=== PATIENT | male | born 1975 | race Two or more races ===

== ENCOUNTER 2020-09-24 15:18 | Outpatient (REF) | payer MEDICARE, MEDICAID, SELFPAY | END 2020-09-24 15:19 | disposition home or self-care (01) | LOC: HO.LNP 15:18 | PROVIDERS: Visit Provider Internal Medicine | DX: Z20.828 Contact with and (suspected) exposure to other viral communicable diseases (principal) | CPT/HCPCS: U0003 ==

== ENCOUNTER 2021-02-12 16:51 | Outpatient (REF) | payer MEDICARE, MEDICAID, SELFPAY ==
--- NOTE | ~2021-02-12 | XR_ITS ---
EXAMINATION: XR CERVICAL SPINE CLINICAL INFORMATION: Neck pain. COMPARISON: None TECHNIQUE: 6 views of the cervical spine, inclusive of flexion and extension views, were obtained. FINDINGS: There is normal cervical lordosis. The vertebral heights and alignment is normal. There is no visible acute fracture, dislocation or subluxation. There is ventral osteophyte at C4-C5 disc level. The neural foramina are patent bilaterally on oblique views. No visible acute fracture, dislocation or lytic process seen. The prevertebral soft tissues are normal. XR/XR cervical spine 5V IMPRESSION: Mild ventral spondylosis C4-C5 disc level. No visible acute fracture, dislocation or subluxation seen.
[2021-02-12 17:18] LABS: MANUAL DIFF FLAG NO
[2021-02-12 17:24] LABS: Basophils Absolute Auto 0.1 X10*3/uL (0.0-0.2); Basophils Percent Auto 0.5 % (0-2); Eosinophils Absolute Auto 0.2 X10*3/uL (0.0-0.4); Eosinophils Percent Auto 1.6 % (0-4); Hematocrit 41.7 % (42-52); Hemoglobin 13.9 g/dl (14.0-18.0); Imm Gran Abs Auto 0.04 X10*3/uL (0.00-0.03); Imm Gran Pct Auto 0.4 % (0.0-0.4); Lymphocytes Absolute Auto 2.6 X10*3/uL (1.2-4.9); Lymphocytes Percent Auto 25.9 % (20-40); Mean Corpuscular HGB Conc 33.3 g/dl (31.0-36.0); Mean Corpuscular Hemoglobin 28.3 pg (27.0-33.0); Mean Corpuscular Volume 84.8 fL (80-98); Mean Platelet Volume 10.7 fL (9.4-12.4); Monocytes Absolute Auto 0.7 X10*3/uL (0.1-1.2); Neutrophils Absolute Auto 6.4 X10*3/uL (2.0-8.3); Neutrophils Percent Auto 64.6 % (45-73); Platelet Count 257 X10*3/uL (160-400); Red Blood Count 4.92 X10*6/uL (4.60-5.80); Red Cell Distribution Width 13.1 % (11.0-16.0); White Blood Count 9.9 X10*3/uL (4.8-10.8)
[2021-02-12 18:00] LABS: Alanine Aminotransferase 27 U/L (0-40); Albumin Level 4.3 g/dL (3.5-5.0); Alkaline Phosphatase 71 U/L (39-117); Anion Gap 12 (12-20); Aspartate Amino Transferase 21 U/L (5-37); Bilirubin Total 0.2 mg/dL (0.0-1.0); Blood Urea Nitrogen 14 mg/dL (9-16); C Reactive Protein 0.59 mg/dL (< or = 0.50); Carbon Dioxide 28 mmol/L (22-29); Chloride 103 mmol/L (96-108); Estimated Glomerular Filt Rate > 60; Glucose Random 64 mg/dL (60-115); Sodium 139 mmol/L (135-145); Total Protein 7.7 g/dL (6.5-8.0)
[2021-02-12 18:12] LABS: Free T4 (Free Thyroxine) 0.79 ng/dL (0.71-1.85); Thyroid Stimulating Hormone 1.99 uIU/mL (0.32-4.0)
== END 2021-02-12 16:52 | disposition home or self-care (01) ==
LOC: HO.LAB 16:51
PROVIDERS: PCP Internal Medicine; Visit Provider Internal Medicine
DX: M54.2 Cervicalgia (principal); E04.9 Nontoxic goiter, unspecified; M19.90 Unspecified osteoarthritis, unspecified site
CPT/HCPCS: 36415; 72050; 80053; 82550; 84439; 84443; 85025; 86140

== ENCOUNTER 2022-11-07 08:54 | Outpatient (REF) | payer MEDICARE, SELFPAY ==
[2022-11-07 09:10] LABS: MANUAL DIFF FLAG NO
[2022-11-07 10:20] LABS: Basophils Absolute Auto 0.1 X10*3/uL (0.0-0.2); Basophils Percent Auto 0.8 % (0-2); Eosinophils Absolute Auto 0.2 X10*3/uL (0.0-0.4); Eosinophils Percent Auto 1.9 % (0-4); Hematocrit 47.5 % (42.0-52.0); Hemoglobin 15.4 g/dl (14.0-18.0); Imm Gran Abs Auto 0.06 X10*3/uL (0.00-0.03); Imm Gran Pct Auto 0.5 % (0.0-0.4); Lymphocytes Percent Auto 25.4 % (20-40); Mean Corpuscular HGB Conc 32.4 g/dl (31.0-36.0); Mean Corpuscular Hemoglobin 27.9 pg (27.0-33.0); Mean Corpuscular Volume 86.1 fL (80.0-98.0); Mean Platelet Volume 11.7 fL (9.4-12.4); Monocytes Percent Auto 8.2 % (2-11); Neutrophils Absolute Auto 7.6 x10*3/uL (2.0-8.3); Neutrophils Percent Auto 63.2 % (45-73); Platelet Count 287 X10*3/uL (160-400); Red Blood Count 5.52 X10*6/uL (4.60-5.80); Red Cell Distribution Width 13.2 % (11.0-16.0)
[2022-11-07 10:30] LABS: Estimated Average Glucose 105 mg/dL; Hemoglobin A1c % 5.3 %
[2022-11-07 10:32] LABS: Appearance Urine Clear; Color Urine Yellow; Glucose Urine UA Negative (Negative); Leukocyte Esterase Urine Negative (Negative); Nitrite Urine Negative (Negative); PH 5.5 (5.0-9.0); Urine Blood Negative (Negative); Urine Ketones Negative (Negative); Urine Protein Negative (Neg-Trace)
[2022-11-07 10:54] LABS: Amphetamine Screen Urine Not Detected (Not Detect); Barbiturates, Urine Not Detected (Not Detect); Benzodiazepines Screen Urine Not Detected (Not Detect); Cocaine Screen Urine Not Detected (Not Detect); Fentanyl, urine Not Detected (Not Detect); Opiate Screen Urine Not Detected (Not Detect); Phencyclidine Screen Urine Not Detected (Not Detect)
[2022-11-07 11:15] LABS: Alanine Aminotransferase 28 U/L (0-40); Albumin Level 4.4 g/dL (3.5-5.0); Alkaline Phosphatase 85 U/L (39-117); Anion Gap 14 (12-20); Aspartate Amino Transferase 16 U/L (5-37); Bilirubin Total 0.3 mg/dL (0.0-1.0); Blood Urea Nitrogen 20 mg/dL (9-16); C Reactive Protein 0.43 mg/dL (< or = 0.50); Calcium 9.9 mg/dL (8.4-10.2); Carbon Dioxide 26 mmol/L (22-29); Chloride 103 mmol/L (96-108); Cholesterol 220 mg/dL; Estimated Glomerular Filt Rate > 60; Free T4 (Free Thyroxine) 0.92 ng/dL (0.71-1.85); Glucose Random 90 mg/dL (60-115); Potassium 4.6 mmol/L (3.3-5.1); Sodium 138 mmol/L (135-145); Thyroid Stimulating Hormone 4.34 uIU/mL (0.32-4.0); Total Protein 7.9 g/dL (6.5-8.0)
== END 2022-11-07 08:55 | disposition home or self-care (01) ==
LOC: HO.LAB 08:54
PROVIDERS: PCP Internal Medicine; Visit Provider Internal Medicine
DX: I10 Essential (primary) hypertension (principal); L72.9 Follicular cyst of the skin and subcutaneous tissue, unspecified
CPT/HCPCS: 80053; 80307; 81003; 82465; 83036; 84439; 84443; 85025; 86140

== ENCOUNTER 2024-01-14 16:20 | Outpatient (REF) | payer MEDICARE, SELFPAY ==
[2024-01-14 16:44] LABS: MANUAL DIFF FLAG NO
[2024-01-14 17:39] LABS: Basophils Absolute Auto 0.1 X10*3/uL (0.0-0.2); Basophils Percent Auto 0.6 % (0-2); Eosinophils Absolute Auto 0.1 X10*3/uL (0.0-0.4); Eosinophils Percent Auto 0.7 % (0-4); Hemoglobin 14.8 g/dl (14.0-18.0); Imm Gran Abs Auto 0.04 X10*3/uL (0.00-0.03); Imm Gran Pct Auto 0.3 % (0.0-0.4); Lymphocytes Absolute Auto 2.4 X10*3/uL (1.2-4.9); Lymphocytes Percent Auto 20.7 % (20-40); Mean Corpuscular HGB Conc 32.9 g/dl (31.0-36.0); Mean Corpuscular Hemoglobin 28.3 pg (27.0-33.0); Mean Platelet Volume 11.1 fL (9.4-12.4); Monocytes Absolute Auto 0.8 X10*3/uL (0.1-1.2); Neutrophils Absolute Auto 8.2 x10*3/uL (2.0-8.3); Neutrophils Percent Auto 70.7 % (45-73); Platelet Count 278 X10*3/uL (160-400); Red Blood Count 5.23 X10*6/uL (4.60-5.80); Red Cell Distribution Width 13.2 % (11.0-16.0); White Blood Count 11.6 X10*3/uL (4.8-10.8)
[2024-01-14 18:14] LABS: Alanine Aminotransferase 17 U/L (0-40); Albumin Level 4.3 g/dL (3.5-5.0); Alkaline Phosphatase 81 U/L (39-117); Anion Gap 12 (12-20); Aspartate Amino Transferase 15 U/L (5-37); Bilirubin Total 0.4 mg/dL (0.0-1.0); Blood Urea Nitrogen 12 mg/dL (9-16); Calcium 9.2 mg/dL (8.4-10.2); Carbon Dioxide 29 mmol/L (22-29); Chloride 102 mmol/L (96-108); Estimated Glomerular Filt Rate > 60; Glucose Random 91 mg/dL (60-115); Potassium 4.1 mmol/L (3.3-5.1); Sodium 139 mmol/L (135-145); Total Protein 8.3 g/dL (6.5-8.0)
[2024-01-14 18:32] LABS: Free T4 (Free Thyroxine) 1.04 ng/dL (0.71-1.85); Thyroid Stimulating Hormone 2.87 uIU/mL (0.32-4.0)
== END 2024-01-14 16:21 | disposition home or self-care (01) ==
LOC: HO.LAB 16:20
PROVIDERS: PCP Internal Medicine; Visit Provider Internal Medicine
DX: I10 Essential (primary) hypertension (principal); E03.9 Hypothyroidism, unspecified
CPT/HCPCS: 36415; 80053; 84439; 84443; 85025

== ENCOUNTER 2024-10-03 12:03 | Inpatient (IN) | payer MEDICARE, SELFPAY ==
--- NOTE | 2024-10-03 | ECG_ITS ---
Test Reason : HYPERTENSION Blood Pressure : / mmHG Vent. Rate : 087 BPM Atrial Rate : 087 BPM P-R Int : 172 ms QRS Dur : 092 ms QT Int : 344 ms P-R-T Axes : 028 -17 -02 degrees QTc Int : 413 ms Normal sinus rhythm Moderate voltage criteria for LVH, may be normal variant ( R in aVL , [place] product ) Possible Anterior infarct , age undetermined Abnormal ECG When compared with ECG of 03-SEP-2013 12:14, No significant change was found Referred By: Generic ED Physician Electronically Signed By:KRANTHI GROSS MD
[2024-10-03 12:07] VITALS: BP 167/111; PULSE 93; RESP 16; TEMP 37.2; O2SAT 96; BMI 33.9
--- NOTE | 2024-10-03 12:19 | MHC.EDTECH ---
ekg machine time out of sync with actual time
[2024-10-03 12:23] LABS: MANUAL DIFF FLAG NO
[2024-10-03 12:26] LABS: Basophils Absolute Auto 0.1 X10*3/uL (0.0-0.2); Basophils Percent Auto 0.6 % (0-2); Eosinophils Percent Auto 0.5 % (0-4); Hemoglobin 14.6 g/dl (14.0-18.0); Imm Gran Abs Auto 0.02 X10*3/uL (0.00-0.03); Imm Gran Pct Auto 0.2 % (0.0-0.4); Lymphocytes Absolute Auto 1.7 X10*3/uL (1.2-4.9); Lymphocytes Percent Auto 19.5 % (20-40); Mean Corpuscular Hemoglobin 28.8 pg (27.0-33.0); Mean Corpuscular Volume 84.8 fL (80.0-98.0); Mean Platelet Volume 10.8 fL (9.4-12.4); Monocytes Absolute Auto 0.7 X10*3/uL (0.1-1.2); Monocytes Percent Auto 7.6 % (2-11); Neutrophils Absolute Auto 6.3 x10*3/uL (2.0-8.3); Neutrophils Percent Auto 71.6 % (45-73); Platelet Count 280 X10*3/uL (160-400); Red Blood Count 5.07 X10*6/uL (4.60-5.80); Red Cell Distribution Width 13.2 % (11.0-16.0); White Blood Count 8.8 X10*3/uL (4.8-10.8)
[2024-10-03 12:40] LABS: Alanine Aminotransferase 30 U/L (0-40); Albumin Level 4.2 g/dL (3.5-5.0); Alkaline Phosphatase 78 U/L (39-117); Anion Gap 9 (12-20); Aspartate Amino Transferase 26 U/L (5-37); Bilirubin Total 0.7 mg/dL (0.0-1.0); Blood Urea Nitrogen 11 mg/dL (9-16); Calcium 9.5 mg/dL (8.4-10.2); Carbon Dioxide 27 mmol/L (22-29); Chloride 107 mmol/L (96-108); Creatinine Clr Calc Pharmacy 100.4; Estimated Glomerular Filt Rate > 60; Glucose Random 140 mg/dL (60-115); Potassium 3.6 mmol/L (3.3-5.1); Sodium 139 mmol/L (135-145); Total Protein 7.6 g/dL (6.5-8.0)
[2024-10-03 13:59] LABS: Ethanol < 10 mg/dL
--- NOTE | 2024-10-03 14:13 | ED.GENADULT ---
HPI - General Adult General Chief complaint: Psychiatric Symptoms Stated complaint: crisis Time Seen by Provider: 10/03/24 13:17 Source: patient Mode of arrival: ambulatory Limitations: no limitations History of Present Illness HPI narrative: This is a 49-year-old man with past medical history of depression, hypothyroidism, hypertension who presents for evaluation of depression. Patient states that he has been feeling increasingly depressed over the last month. Patient states that he used to take a medicine for depression, but states that he does not recall the name and has not been taking his medication. Patient states that he has also been hearing things and seeing things. He states that he has been seeing a ?v-shaped sign in various places and with increasing frequency. He states no alcohol use. He states that he does use marijuana, but states no other recreational or illicit drug use. He states that he has been several years since he has used cocaine. He states no intravenous drug use. He states no suicidal ideation or homicidal ideation. Patient reports feeling increasingly unsafe at home because he feels as if someone is going to hurt him and that the voices that he hears is concerning to him as well. He states no fever, cough, chest pain, dyspnea, abdominal pain, GI or symptoms. Related Data Home Medications ?Medication ?Instructions ?Recorded ?Confirmed levothyroxine 25 mcg tablet 25 mcg PO DAILY 10/03/24 10/03/24 losartan 100 mg tablet 100 mg PO DAILY 10/03/24 10/03/24 ziprasidone HCl 40 mg capsule 40 mg PO DAILY 10/03/24 10/03/24 Allergies Allergy/AdvReac Type Severity Reaction Status Date / Time No Known Allergies Allergy Unknown Verified 10/03/24 12:08 Review of Systems Review of Systems: ROS as per HPI [facility] Social History Social History Smoked in Last 30 Days: No Use of substances other than those prescribed or required for medical reasons: No Advance Directives: No Advance Directives Information Provided: Yes Do you have a plan to hurt others: No Plan Physical Exam ED Vital Signs: Vital Signs - 24 hr 10/03/24 12:07 10/03/24 15:23 Temperature 98.9 F 98.4 F Pulse Rate 93 94 Respiratory Rate 16 16 Blood Pressure 167/111 H 188/95 H Pulse Oximetry 96 98 Oxygen Delivery Method Room Air Room Air BMI result Body Mass Index 33.9 Gen: NAD, AOx3 HEENT: NCAT, EOMI, normal conjunctiva CV: RRR Pulm: CTAB, no increased work of breathing GI: Soft, NTND, no rebound, guarding or rigidity MSK: Bilateral upper and lower extremity compartments are soft Neuro: Grossly non focal Medications Administered Discontinued Medications Generic Name Dose Route Start Last Admin Trade Name Freq PRN Reason Stop Dose Admin Levothyroxine Sodium 25 mcg 10/03/24 17:52 10/03/24 18:27 Levothyroxine Sodium 25 Mcg Tablet PO 10/03/24 17:53 25 mcg DAILY ONE Administration Losartan Potassium 100 mg 10/03/24 17:52 10/03/24 18:27 Losartan Potassium 50 Mg Tablet PO 10/03/24 17:53 100 mg DAILY ONE Administration Protocol Ziprasidone 40 mg 10/03/24 17:52 10/03/24 19:31 Ziprasidone 40 Mg Capsule PO 10/03/24 17:53 40 mg DAILY ONE Administration Medical Decision Making Medical Decision Making [facility] Narrative: Differential diagnosis includes, but is not limited to depression, anxiety, substance use, decompensated psychiatric illness. Patient is afebrile and hemodynamically stable on room air. Exam is benign and reassuring. I reviewed and interpreted labs as below, which are noncontributory. I have consulted care team. Care is transitioned to oncoming physician, Dr. Walls, at the end of my shift at 9:00 p.m. with disposition pending care team consultation. Admission/Observation Consideration of admission/observation: Escalation of care including admission/observation considered Consult Healthcare Provider Management of the patient was discussed with: Song Writer Lab Data [facility] Lab Attestation statement: I reviewed the patient's lab results. I independently reviewed and interpreted the patient's labs including CBC, metabolic panel, ethanol level, urinalysis, urine drug screen, acetaminophen level, salicylate level and ethanol level, which are overall reassuring. Urine drug screen is positive for marijuana, which the patient reports using. 10/03/24 12:18 10/03/24 12:18 Labs: Lab Results 10/03/24 10/03/24 10/03/24 Range/Units 12:18 14:30 14:52 WBC 8.8 (4.8-10.8) X10*3/uL RBC 5.07 (4.60-5.80) X10*6/uL Hgb 14.6 (14.0-18.0) g/dl Hct 43.0 (42.0-52.0) % MCV 84.8 (80.0-98.0) fL MCH 28.8 (27.0-33.0) pg MCHC 34.0 (31.0-36.0) g/dl RDW 13.2 (11.0-16.0) % Plt Count 280 (160-400) X10*3/uL MPV 10.8 (9.4-12.4) fL Immature Gran % (Auto) 0.2 (0.0-0.4) % Neut % (Auto) 71.6 (45-73) % Lymph % (Auto) 19.5 L (20-40) % [place] % (Auto) 7.6 (2-11) % Eos % (Auto) 0.5 (0-4) % Baso % (Auto) 0.6 (0-2) % Lymph # (Auto) 1.7 (1.2-4.9) X10*3/uL [place] # (Auto) 0.7 (0.1-1.2) X10*3/uL Eos # (Auto) 0.0 (0.0-0.4) X10*3/uL Baso # (Auto) 0.1 (0.0-0.2) X10*3/uL Abs Immat Gran (auto) 0.02 (0.00-0.03) X10*3/uL Absolute Neuts (auto) 6.3 (2.0-8.3) x10*3/uL Absolute Nucleated RBC 0.000 (0.0-0.012) X10*3/uL Nucleated RBC % (auto) 0.0 (0.0-0.2) /100WBC Sodium 139 (135-145) mmol/L Potassium 3.6 (3.3-5.1) mmol/L Chloride 107 (96-108) mmol/L Carbon Dioxide 27 (22-29) mmol/L Anion Gap 9 L (12-20) BUN 11 (9-16) mg/dL Creatinine 1.08 (0.5-1.4) mg/dL Estim Creat Clear Calc 100.4 Estimated GFR > 60 Random Glucose 140 H (60-115) mg/dL Calcium 9.5 (8.4-10.2) mg/dL Total Bilirubin 0.7 (0.0-1.0) mg/dL AST 26 (5-37) U/L ALT 30 (0-40) U/L Alkaline Phosphatase 78 (39-117) U/L Total Protein 7.6 (6.5-8.0) g/dL Albumin 4.2 (3.5-5.0) g/dL Urine Color Dark Yellow Urine Appearance Clear Urine pH 5.5 (5.0-9.0) Ur Specific [place] 1.025 (1.005-1.025) Urine Protein 30 (1+) H (Neg-Trace) mg/dL Urine Glucose (UA) Negative (Negative) mg/dL Urine Ketones Negative (Negative) mg/dL Urine Blood Negative (Negative) Urine Nitrite Negative (Negative) Ur Leukocyte Esterase Negative (Negative) Urine RBC 0-2 (0-2) /HPF Urine WBC 0-5 (0-5) /HPF Ur Squamous Epith Cells 0-2 (0-2) /HPF Urine Bacteria None Seen (None Seen) Hyaline Casts 3-5 (0-2) /LPF Salicylates < 5.0 L (15-30) mg/dL Urine Opiates Screen Not Detected (Not Detect) Ur Buprenorphine Scrn Not Detected (Not Detect) ng/mL Ur Oxycodone Screen Not Detected (Not Detect) ng/mL Urine Methadone Screen Not Detected (Not Detect) ng/mL Urine Fentanyl Screen Not Detected (Not Detect) Acetaminophen < 3 (<30) mcg/mL Ur Barbiturates Screen Not Detected (Not Detect) Ur Phencyclidine Scrn Not Detected (Not Detect) Ur Amphetamines Screen Not Detected (Not Detect) U Benzodiazepines Scrn Not Detected (Not Detect) Urine Cocaine Screen Not Detected (Not Detect) U Marijuana (THC) Screen POSITIVE H (Not Detect) Ethyl Alcohol < 10 mg/dL Discharge Plan Discharge Clinical Impression: Depression, Marijuana use Patient Disposition: Still a Patient Prescriptions: No Action levothyroxine 25 mcg tablet 25 mcg PO DAILY ziprasidone HCl 40 mg capsule 40 mg PO DAILY losartan 100 mg tablet 100 mg PO DAILY Interventions: [place]-Suicide Risk Severity Scale Last Done: 10/03/24 12:10 Print Language: [place]an
[2024-10-03 14:38] LABS: Appearance Urine Clear; Color Urine Dark Yellow; Glucose Urine UA Negative (Negative); Leukocyte Esterase Urine Negative (Negative); Nitrite Urine Negative (Negative); PH 5.5 (5.0-9.0); Specific Gravity - Urine 1.025 (1.005-1.025); UMIC TRIGGER UACC YES; Urine Blood Negative (Negative); Urine Ketones Negative (Negative); Urine Protein 30 (1+) mg/dL (Neg-Trace)
[2024-10-03 14:41] LABS: Bacteria Urine None Seen (None Seen); RBC Urine 0-2 /HPF (0-2); Squamous Epithelial Cell Urine 0-2 /HPF (0-2); WBC Urine 0-5 /HPF (0-5)
[2024-10-03 14:49] LABS: Amphetamine Screen Urine Not Detected (Not Detect); Barbiturates, Urine Not Detected (Not Detect); Benzodiazepines Screen Urine Not Detected (Not Detect); Buprenorphine Scr Not Detected (Not Detect); Cannabinoid Screen Urine POSITIVE (Not Detect); Cocaine Screen Urine Not Detected (Not Detect); Fentanyl, urine Not Detected (Not Detect); Methadone Screen, Urine Not Detected (Not Detect); Opiate Screen Urine Not Detected (Not Detect); Oxycodone Screen Urine Not Detected (Not Detect); Phencyclidine Screen Urine Not Detected (Not Detect)
[2024-10-03 15:14] LABS: Acetaminophen LAB < 3 mcg/mL (<30); Salicylate < 5.0 mg/dL (15-30)
[2024-10-03 15:23] VITALS: BP 188/95; PULSE 94; RESP 16; TEMP 36.9; O2SAT 98
--- NOTE | 2024-10-03 17:00 | PC.NURSE ---
pt brought in 3 rx bottles and said these are the meds he is taking. Levothyroxine 25 mcg losartan 100mg ziprasidone 40mg added to med rec
[2024-10-03] MEDS: Losartan Potassium 50 MG TABLET 100 MG PO (18:27)
[2024-10-03] MEDS: Levothyroxine Sodium 25 MCG TABLET PO (18:27)
[2024-10-03] MEDS: Ziprasidone 40 MG CAPSULE PO (19:31)
[2024-10-03] MEDS: Melatonin 3 MG TABLET 6 MG PO (21:23)
[2024-10-03 21:44] VITALS: BP 129/83; PULSE 86; RESP 16; TEMP 37.7; O2SAT 97
--- NOTE | 2024-10-04 07:44 | PC.NURSE ---
Assumed care of patient at 0645, patient appears to be in no apparent distress this am, ambulating around [facility] pod, offers no complaints to this RN. Continue plan of care for inpatient bedsearch
[2024-10-04] MEDS: Losartan Potassium 50 MG TABLET 100 MG PO (08:11)
[2024-10-04] MEDS: Ziprasidone 40 MG CAPSULE PO (08:31)
[2024-10-04 13:25] VITALS: BP 161/109; PULSE 88; O2SAT 97
[2024-10-04 14:37] VITALS: BMI 33.5
--- NOTE | 2024-10-04 14:41 | HO.PSYADMNOT ---
HPI Date of Service: 10/04/24 Chief Complaint: crisis Sources of Information: patient interviewed, chart reviewed and crisis/core team assessment reviewed HPI Subjective Notes: [place] Warning and Conditional Voluntary Narrative: Patient is a 49-year-old male with history of MDD who self presented to [facility] due to auditory and visual hallucinations secondary to medication noncompliance. Per crisis report, patient's family brought patient into ER 2 patient reporting command auditory hallucinations to get rid of himself and visual hallucinations of v-shaped signs. Patient reports he stopped taking his medications a couple of months and since then he has experienced increased depression, hallucinations, paranoia and poor sleep. Patient reports he is worried that someone is out to harm him. He reports he does not have any outpatient psychiatric providers. During admission assessment, patient presents alert and oriented x3. Calm and cooperative. Patient reports feeling anxious and depressed; patient stated, I felt like somebody was coming for me. I'm seeing lights moving and hearing alarm clocks. Six months ago I stopped taking my medications because I didn't think I needed them but obviously I do . Patient reports a similar occurrence 10 years ago. He reports he has not been eating or sleeping well. Patient reports he would like to be restarted on his medications and referred to outpatient psychiatric prescriber. denies SI/HI. Past Psychiatric History: denies hx SA. hx of cutting. hx of 2 prior inpatient psychiatric hospitalizations. does not have outpatient psychiatric providers. Medical Evaluation Reviewed: Yes [facility] Family History: denies Social History: , 4 kids (28,26,18,15), disability. highest level of education completed 11th grade. Substance History: hx of cocaine use (has not used in 10 years); smokes marijuana daily. Trauma History: denies Diagnostics Vital Signs (24Hr): Vital Signs - 24 hr 10/03/24 15:23 10/03/24 21:44 10/04/24 13:25 Temperature 98.4 F 99.9 F Pulse Rate 94 86 88 Respiratory Rate 16 16 Blood Pressure 188/95 H 129/83 161/109 H Pulse Oximetry 98 97 97 Oxygen Delivery Method Room Air Room Air Room Air BMI result Body Mass Index 33.5 Labs 10/03/24 12:18 10/03/24 12:18 Labs: Laboratory Results - last 48 hr 10/03/24 10/03/24 10/03/24 12:18 14:30 14:52 WBC 8.8 RBC 5.07 Hgb 14.6 Hct 43.0 MCV 84.8 MCH 28.8 MCHC 34.0 RDW 13.2 Plt Count 280 MPV 10.8 Immature Gran % (Auto) 0.2 Neut % (Auto) 71.6 Lymph % (Auto) 19.5 L [place] % (Auto) 7.6 Eos % (Auto) 0.5 Baso % (Auto) 0.6 Lymph # (Auto) 1.7 [place] # (Auto) 0.7 Eos # (Auto) 0.0 Baso # (Auto) 0.1 Abs Immat Gran (auto) 0.02 Absolute Neuts (auto) 6.3 Absolute Nucleated RBC 0.000 Nucleated RBC % (auto) 0.0 Sodium 139 Potassium 3.6 Chloride 107 Carbon Dioxide 27 Anion Gap 9 L BUN 11 Creatinine 1.08 Estim Creat Clear Calc 100.4 Estimated GFR > 60 Random Glucose 140 H Calcium 9.5 Total Bilirubin 0.7 AST 26 ALT 30 Alkaline Phosphatase 78 Total Protein 7.6 Albumin 4.2 Urine Color Dark Yellow Urine Appearance Clear Urine pH 5.5 Ur Specific [place] 1.025 Urine Protein 30 (1+) H Urine Glucose (UA) Negative Urine Ketones Negative Urine Blood Negative Urine Nitrite Negative Ur Leukocyte Esterase Negative Urine RBC 0-2 Urine WBC 0-5 Ur Squamous Epith Cells 0-2 Urine Bacteria None Seen Hyaline Casts 3-5 Salicylates < 5.0 L Urine Opiates Screen Not Detected Ur Buprenorphine Scrn Not Detected Ur Oxycodone Screen Not Detected Urine Methadone Screen Not Detected Urine Fentanyl Screen Not Detected Acetaminophen < 3 Ur Barbiturates Screen Not Detected Ur Phencyclidine Scrn Not Detected Ur Amphetamines Screen Not Detected U Benzodiazepines Scrn Not Detected Urine Cocaine Screen Not Detected U Marijuana (THC) Screen POSITIVE H Ethyl Alcohol < 10 Meds/Allergies Meds Home Medications ?Medication ?Instructions ?Recorded ?Confirmed ?Type levothyroxine 25 mcg tablet 25 mcg PO DAILY 10/03/24 10/03/24 History losartan 100 mg tablet 100 mg PO DAILY 10/03/24 10/03/24 History ziprasidone HCl 40 mg capsule 40 mg PO DAILY 10/03/24 10/03/24 History Allergies Allergies Allergy/AdvReac Type Severity Reaction Status Date / Time No Known Allergies Allergy Unknown Verified 10/03/24 12:08 Mental Status Exam Mental Status Exam Narrative: Pt is alert and oriented; behavior is cooperative; dressed in casual attire; mood is described as anxious and depressed ; eye contact appropriate; Speech is normal rate, volume and not pressured; thought process is organized and goal directed; Thought content is on tx; denies SI/HI. Pt reports auditory and visual hallucinations. Assessment & Plan Assessment & Plan (1) MDD (major depressive disorder), recurrent episode: Status: Acute Code(s): F33.9 - Major depressive disorder, recurrent, unspecified Plan Patient is a 49-year-old male with history of MDD who self presented to [facility] due to auditory and visual hallucinations secondary to medication noncompliance. Plan: CV 15 minute safety checks continue home medications Start: clonindine 0.05mg PO BID@0900,1500 melatonin 6mg PO bedtime encourage groups referral to outpatient psychiatric provider discharge planning Patient educated on: diagnosis, medication risk/benefits and therapeutic strategies Informed Consent: understands Reason for continued inpatient stay Substantial Risk for: med/psych decompensation Statement Statement: I have reviewed the history and physical and performed a pertinent examination on my patient. No changes have occurred unless specified. If the History and Physical was not performed prior to admission, the Hospitalist's service will be consulted for completing the admission physical. Time Spent With Patient Time: Total time managing care of this patient today _60___ minutes.
--- NOTE | 2024-10-04 15:15 | PC.ADMIT ---
Shravan is a 49-year-old male admitted from [facility] to [facility] on a CV for unspecified depressive disorder. Tox screen positive for THC. Pt presented to the ED for increased depression, command AH, VH, poor sleep, paranoia, and non-compliance with prescribed medications. Mood is depressed with congruent affect. Upon arrival to M3, pt was pleasant, cooperative, alert and oriented x4. Pt's has hx hypothyroidism and HTN, BP was elevated 161/109, provider Fatoumata aware. Pt reports racing thoughts. Pt reported he stopped taking his medications because he felt good and I didn't think I needed them anymore. Pt is willing to take medications and would like to be connected with outside providers. Pt reports 20lb weight loss in 1 month due to decreased appetite. Pt is paranoid that someone is out to mess with me. Pt endorses marijuana use but denies alcohol or substance use. Pt endorses AH/VH but declined to elaborate. Pt denied SI/HI but would reach out to staff if thoughts occur. Pt placed on 15 minute safety checks.
[2024-10-04 15:23] VITALS: BP 157/88; PULSE 80
[2024-10-04] MEDS: cloNIDine HCL 0.1 MG TABLET 0.05 MG PO (15:25)
[2024-10-04 20:00] VITALS: BP 119/73; PULSE 99; RESP 18; TEMP 37.1; O2SAT 100
[2024-10-04] MEDS: Melatonin 3 MG TABLET 6 MG PO (20:38)
[2024-10-04] MEDS: Flu Vacc TS2024-25(6mos up)/PF 0.5 ML SYRINGE IM (20:39)
[2024-10-04] MEDS: traZODone HCL 50 MG TABLET PO (20:47)
[2024-10-05] MEDS: Levothyroxine Sodium 25 MCG TABLET PO (06:23)
[2024-10-05 07:43] VITALS: BP 147/97; PULSE 112; RESP 16; TEMP 37.1; O2SAT 98
[2024-10-05] MEDS: cloNIDine HCL 0.1 MG TABLET 0.05 MG PO ×2 (08:37→14:58)
[2024-10-05] MEDS: Losartan Potassium 50 MG TABLET 100 MG PO (08:38)
[2024-10-05] MEDS: Ziprasidone 40 MG CAPSULE PO (08:42)
--- NOTE | 2024-10-05 08:50 | HO.PSYCHPN ---
Subjective Subjective Date of Service: 10/05/24 Reason For Visit: crisis Subjective Notes: 3 Day Interim History: 3 day notice up on 10/10/24. Active on unit, keeping to self. Patient reports feeling better since restarting his medications. Pt stated, I'm no longer feeling like someone is after me and the hallucinations stopped . He reports having a good visit with his and son yesterday. Showered. Pt reports sleeping well. denies SI/HI/VH/AH. Medication Compliance: Yes Side effects from medications: No Review of Systems Constitutional: Reports as per HPI Eyes: Reports as per HPI Reports as per HPI Cardiovascular: Reports as per HPI Respiratory: Reports as per HPI Gastrointestinal: Reports as per HPI Genitourinary: Reports as per HPI Musculoskeletal: Reports as per HPI Skin/Breast: Reports as per HPI Reports as per HPI Psychiatric: Reports as per HPI Endocrine: Reports as per HPI Hematologic/Lymphatic: Reports as per HPI Allergic/Immunologic: Reports as per HPI Mental Status Exam Mental Status Exam Narrative: Pt is alert and oriented; behavior is cooperative; dressed in casual attire; mood is described as better ; eye contact appropriate; Speech is normal rate, volume and not pressured; thought process is organized and goal directed; Thought content is on tx; denies SI/HI/VH/AH. Diagnostics Vital Signs (24Hr): Vital Signs - 24 hr 10/04/24 13:25 10/04/24 15:23 10/04/24 20:00 Temperature 98.7 F Pulse Rate 88 80 99 Respiratory Rate 18 Blood Pressure 161/109 H 157/88 H 119/73 Pulse Oximetry 97 100 Oxygen Delivery Method Room Air Room Air 10/05/24 07:43 Temperature 98.8 F Pulse Rate 112 H Respiratory Rate 16 Blood Pressure 147/97 H Pulse Oximetry 98 Oxygen Delivery Method Room Air BMI result Body Mass Index 33.5 Labs 10/03/24 12:18 10/03/24 12:18 Labs: Laboratory Results - last 48 hr 10/03/24 10/03/24 10/03/24 12:18 14:30 14:52 WBC 8.8 RBC 5.07 Hgb 14.6 Hct 43.0 MCV 84.8 MCH 28.8 MCHC 34.0 RDW 13.2 Plt Count 280 MPV 10.8 Immature Gran % (Auto) 0.2 Neut % (Auto) 71.6 Lymph % (Auto) 19.5 L [place] % (Auto) 7.6 Eos % (Auto) 0.5 Baso % (Auto) 0.6 Lymph # (Auto) 1.7 [place] # (Auto) 0.7 Eos # (Auto) 0.0 Baso # (Auto) 0.1 Abs Immat Gran (auto) 0.02 Absolute Neuts (auto) 6.3 Absolute Nucleated RBC 0.000 Nucleated RBC % (auto) 0.0 Sodium 139 Potassium 3.6 Chloride 107 Carbon Dioxide 27 Anion Gap 9 L BUN 11 Creatinine 1.08 Estim Creat Clear Calc 100.4 Estimated GFR > 60 Random Glucose 140 H Calcium 9.5 Total Bilirubin 0.7 AST 26 ALT 30 Alkaline Phosphatase 78 Total Protein 7.6 Albumin 4.2 Urine Color Dark Yellow Urine Appearance Clear Urine pH 5.5 Ur Specific [place] 1.025 Urine Protein 30 (1+) H Urine Glucose (UA) Negative Urine Ketones Negative Urine Blood Negative Urine Nitrite Negative Ur Leukocyte Esterase Negative Urine RBC 0-2 Urine WBC 0-5 Ur Squamous Epith Cells 0-2 Urine Bacteria None Seen Hyaline Casts 3-5 Salicylates < 5.0 L Urine Opiates Screen Not Detected Ur Buprenorphine Scrn Not Detected Ur Oxycodone Screen Not Detected Urine Methadone Screen Not Detected Urine Fentanyl Screen Not Detected Acetaminophen < 3 Ur Barbiturates Screen Not Detected Ur Phencyclidine Scrn Not Detected Ur Amphetamines Screen Not Detected U Benzodiazepines Scrn Not Detected Urine Cocaine Screen Not Detected U Marijuana (THC) Screen POSITIVE H Ethyl Alcohol < 10 Medications Medications Current Medications Acetaminophen (Acetaminophen 325 Mg Tablet) 650 mg PO Q6H PRN PRN Reason: Headache/Pain Mild Scale (1-3) Al Hydroxide/Mg Hydroxide (Magnesium Hydrox/Alum Hydrox 30 Ml Oral.Susp) 30 ml PO Q6H PRN PRN Reason: Heartburn/Nausea Clonidine HCl (Clonidine Hcl 0.1 Mg Tablet) 0.05 mg PO BID@0900,1500 [place]; Protocol Last Admin: 10/05/24 08:37 Dose: 0.05 mg Cyclobenzaprine HCl (Cyclobenzaprine Hcl 5 Mg Tablet) 5 mg PO BID PRN PRN Reason: back pain Hydroxyzine HCl (Hydroxyzine Hcl 25 Mg Tablet) 25 mg PO Q6H PRN PRN Reason: Anxiety Ibuprofen (Ibuprofen 800 Mg Tablet) 800 mg PO Q8H PRN PRN Reason: Pain, Moderate(Pain Scale 4-6) Levothyroxine Sodium (Levothyroxine Sodium 25 Mcg Tablet) 25 mcg PO DAILY@0630 [facility] Last Admin: 10/05/24 06:23 Dose: 25 mcg Losartan Potassium (Losartan Potassium 50 Mg Tablet) 100 mg PO DAILY [facility]; Protocol Last Admin: 10/05/24 08:38 Dose: 100 mg Magnesium Hydroxide (Milk Of Magnesia 30 Ml Oral.Susp) 30 ml PO DAILY PRN PRN Reason: Constipation Melatonin (Melatonin 3 Mg Tablet) 6 mg PO BEDTIME [facility] Last Admin: 10/04/24 20:38 Dose: 6 mg Nicotine (Nicotine 21 Mg Patch.Td24) 21 mg TRANSDERMA DAILY [facility] Last Admin: 10/05/24 08:38 Dose: Not Given Nicotine Polacrilex (Nicotine Polacrilex 2 Mg Gum) 4 mg [place]AL Q2H PRN PRN Reason: Nicotine Cravings Olanzapine (Olanzapine 5 Mg Tablet) 5 mg PO Q4H PRN PRN Reason: Psychosis/agitation Trazodone HCl (Trazodone Hcl 50 Mg Tablet) 50 mg PO BEDTIME MRX1 PRN PRN Reason: Insomnia Last Admin: 10/04/24 20:47 Dose: 50 mg Ziprasidone (Ziprasidone 40 Mg Capsule) 40 mg PO DAILY [facility] Last Admin: 10/05/24 08:42 Dose: 40 mg Allergies Allergies Allergy/AdvReac Type Severity Reaction Status Date / Time No Known Allergies Allergy Unknown Verified 10/03/24 12:08 Assessment & Plan Assessment & Plan (1) MDD (major depressive disorder), recurrent episode: Status: Acute Code(s): F33.9 - Major depressive disorder, recurrent, unspecified Plan Patient is a 49-year-old male with history of MDD who self presented to [facility] ER due to auditory and visual hallucinations secondary to medication noncompliance. Plan: CV 15 minute safety checks continue home medications Start: clonindine 0.05mg PO BID@0900,1500 melatonin 6mg PO bedtime encourage groups referral to outpatient psychiatric provider discharge planning 10/05: 3 day notice up on 10/10/24. Active on unit, keeping to self. Patient reports feeling better since restarting his medications. Pt stated, I'm no longer feeling like someone is after me and the hallucinations stopped . He reports having a good visit with his and son yesterday. Showered. Pt reports sleeping well. denies SI/HI/VH/AH. Continue current tx plan. Patient educated on: diagnosis and medication risk/benefits Reason for continued inpatient stay Substantial Risk for: med/psych decompensation Time Spent With Patient Time: Total time managing care of this patient today _20___ minutes.
--- NOTE | 2024-10-05 13:51 | MHC.CLN ---
NUTRITION CONSULT FOR REPORTED WEIGHT LOSS. VISITED PATIENT ON UNIT. REPORTS THAT IS EATING WELL, THERE IS PLENTY OF FOOD. BMI=33.5. DIET=REGULAR. NO ADDITIONAL NUTRITION INTERVENTIONS AT THIS TIME.
[2024-10-05 14:54] VITALS: BP 113/67; PULSE 108
[2024-10-05 20:00] VITALS: BP 122/88; PULSE 100; RESP 16; TEMP 36.8; O2SAT 98
[2024-10-05] MEDS: hydrOXYzine HCL 25 MG TABLET PO (20:27)
[2024-10-05] MEDS: Melatonin 3 MG TABLET 6 MG PO (20:27)
[2024-10-05] MEDS: traZODone HCL 50 MG TABLET PO (20:27)
[2024-10-06] MEDS: Levothyroxine Sodium 25 MCG TABLET PO (06:14)
[2024-10-06 07:00] VITALS: BMI 34.2
[2024-10-06 07:51] VITALS: BP 119/78; PULSE 94; RESP 16; TEMP 37; O2SAT 98
[2024-10-06] MEDS: Losartan Potassium 50 MG TABLET 100 MG PO (08:38)
[2024-10-06] MEDS: Ziprasidone 40 MG CAPSULE PO (08:38)
[2024-10-06] MEDS: cloNIDine HCL 0.1 MG TABLET 0.05 MG PO ×2 (08:38→14:50)
[2024-10-06 08:50] LABS: Alanine Aminotransferase 26 U/L (0-40); Albumin Level 4.3 g/dL (3.5-5.0); Alkaline Phosphatase 74 U/L (39-117); Anion Gap 11 (12-20); Aspartate Amino Transferase 23 U/L (5-37); Bilirubin Total 0.4 mg/dL (0.0-1.0); Blood Urea Nitrogen 16 mg/dL (9-16); Calcium 10.1 mg/dL (8.4-10.2); Carbon Dioxide 28 mmol/L (22-29); Chloride 104 mmol/L (96-108); Cholesterol 163 mg/dL (<200); Creatinine Clr Calc Pharmacy 104.8; Estimated Glomerular Filt Rate > 60; Glucose Fasting 106 mg/dL (60-99); HDL Cholesterol 33 mg/dL (>40); LDL Cholesterol Calculated 109 mg/dL (<100); Potassium 4.2 mmol/L (3.3-5.1); Sodium 139 mmol/L (135-145); Total Protein 7.7 g/dL (6.5-8.0); Triglycerides 106 mg/dL (<150)
[2024-10-06] MEDS: Acetaminophen 325 MG TABLET 650 MG PO (09:39)
--- NOTE | 2024-10-06 14:13 | P.PNPSI_ITS ---
Subjective Subjective Date of Service: 10/06/24 Reason For Visit: crisis Subjective Notes: 3 Day Interim History: 3 day notice up on 10/10/24. Active on unit, social with peers. Patient reports feeling good ; pt stated, I'm a little sad because I found out my grandfather last night . Patient requesting to be discharged tomorrow; pt stated, I know that I have to keep taking my pills to feel better. All those negative feelings went away . denies SI/HI/VH/AH. Pt reports he does not want referrals to outpatient psychiatric providers and plans on obtaining his medications from his PCP; he reports if he changes his mind he will contact psychiatric providers. T/W spoke to patient's , Sandra, who reports she feels patient has improved since admission. She states she is okay with patient returning home tomorrow and does not have any concerns. Medication Compliance: Yes Side effects from medications: No Attending Groups: No Review of Systems Constitutional: Reports as per HPI Eyes: Reports as per HPI Reports as per HPI Cardiovascular: Reports as per HPI Respiratory: Reports as per HPI Gastrointestinal: Reports as per HPI Genitourinary: Reports as per HPI Musculoskeletal: Reports as per HPI Skin/Breast: Reports as per HPI Reports as per HPI Psychiatric: Reports as per HPI Endocrine: Reports as per HPI Hematologic/Lymphatic: Reports as per HPI Allergic/Immunologic: Reports as per HPI Mental Status Exam Mental Status Exam Narrative: Pt is alert and oriented; behavior is cooperative; dressed in casual attire; mood is described as good ; eye contact appropriate; Speech is normal rate, volume and not pressured; thought process is organized and goal directed; Thought content is on discharge; denies SI/HI/VH/AH. Diagnostics Vital Signs (24Hr): Vital Signs - 24 hr 10/05/24 14:54 10/05/24 20:00 10/06/24 07:51 Temperature 98.2 F 98.6 F Pulse Rate 108 H 100 94 Respiratory Rate 16 16 Blood Pressure 113/67 122/88 119/78 Pulse Oximetry 98 98 Oxygen Delivery Method Room Air Room Air BMI result Body Mass Index 34.2 Labs 10/03/24 12:18 10/06/24 08:10 Labs: Laboratory Results - last 48 hr 10/06/24 08:10 Sodium 139 Potassium 4.2 Chloride 104 Carbon Dioxide 28 Anion Gap 11 L BUN 16 Creatinine 1.03 Estim Creat Clear Calc 104.8 Estimated GFR > 60 Fasting Glucose 106 H Calcium 10.1 D Total Bilirubin 0.4 AST 23 ALT 26 Alkaline Phosphatase 74 Total Protein 7.7 Albumin 4.3 Triglycerides 106 Cholesterol 163 LDL Cholesterol, Calc 109 H HDL Cholesterol 33 L Medications Medications Current Medications Acetaminophen (Acetaminophen 325 Mg Tablet) 650 mg PO Q6H PRN PRN Reason: Headache/Pain Mild Scale (1-3) Last Admin: 10/06/24 09:39 Dose: 650 mg Al Hydroxide/Mg Hydroxide (Magnesium Hydrox/Alum Hydrox 30 Ml Oral.Susp) 30 ml PO Q6H PRN PRN Reason: Heartburn/Nausea Clonidine HCl (Clonidine Hcl 0.1 Mg Tablet) 0.05 mg PO BID@0900,1500 [facility]; Protocol Last Admin: 10/06/24 08:38 Dose: 0.05 mg Cyclobenzaprine HCl (Cyclobenzaprine Hcl 5 Mg Tablet) 5 mg PO BID PRN PRN Reason: back pain Hydroxyzine HCl (Hydroxyzine Hcl 25 Mg Tablet) 25 mg PO Q6H PRN PRN Reason: Anxiety Last Admin: 10/05/24 20:27 Dose: 25 mg Ibuprofen (Ibuprofen 800 Mg Tablet) 800 mg PO Q8H PRN PRN Reason: Pain, Moderate(Pain Scale 4-6) Levothyroxine Sodium (Levothyroxine Sodium 25 Mcg Tablet) 25 mcg PO DAILY@0630 [facility] Last Admin: 10/06/24 06:14 Dose: 25 mcg Losartan Potassium (Losartan Potassium 50 Mg Tablet) 100 mg PO DAILY [facility]; Protocol Last Admin: 10/06/24 08:38 Dose: 100 mg Magnesium Hydroxide (Milk Of Magnesia 30 Ml Oral.Susp) 30 ml PO DAILY PRN PRN Reason: Constipation Melatonin (Melatonin 3 Mg Tablet) 6 mg PO BEDTIME [facility] Last Admin: 10/05/24 20:27 Dose: 6 mg Nicotine (Nicotine 21 Mg Patch.Td24) 21 mg TRANSDERMA DAILY [facility] Last Admin: 10/06/24 09:02 Dose: Not Given Nicotine Polacrilex (Nicotine Polacrilex 2 Mg Gum) 4 mg BUCCAL Q2H PRN PRN Reason: Nicotine Cravings Olanzapine (Olanzapine 5 Mg Tablet) 5 mg PO Q4H PRN PRN Reason: Psychosis/agitation Trazodone HCl (Trazodone Hcl 50 Mg Tablet) 50 mg PO BEDTIME MRX1 PRN PRN Reason: Insomnia Last Admin: 10/05/24 20:27 Dose: 50 mg Ziprasidone (Ziprasidone 40 Mg Capsule) 40 mg PO DAILY [facility] Last Admin: 10/06/24 08:38 Dose: 40 mg Allergies Allergies Allergy/AdvReac Type Severity Reaction Status Date / Time No Known Allergies Allergy Unknown Verified 10/03/24 12:08 Assessment & Plan Assessment & Plan (1) MDD (major depressive disorder), recurrent episode: Status: Acute Code(s): F33.9 - Major depressive disorder, recurrent, unspecified Plan Patient is a 49-year-old male with history of MDD who self presented to [facility] ER due to auditory and visual hallucinations secondary to medication noncompliance. Plan: CV 15 minute safety checks continue home medications Start: clonindine 0.05mg PO BID@0900,1500 melatonin 6mg PO bedtime encourage groups referral to outpatient psychiatric provider discharge planning 10/05: 3 day notice up on 10/10/24. Active on unit, keeping to self. Patient reports feeling better since restarting his medications. Pt stated, I'm no longer feeling like someone is after me and the hallucinations stopped . He reports having a good visit with his and son yesterday. Showered. Pt reports sleeping well. denies SI/HI/VH/AH. Continue current tx plan. 10/06: 3 day notice up on 10/10/24. Active on unit, social with peers. Patient reports feeling good ; pt stated, I'm a little sad because I found out my grandfather last night . Patient requesting to be discharged tomorrow; pt stated, I know that I have to keep taking my pills to feel better. All those negative feelings went away . denies SI/HI/VH/AH. Pt reports he does not want referrals to outpatient psychiatric providers and plans on obtaining his medications from his PCP; he reports if he changes his mind he will contact psychiatric providers. T/W spoke to patient's , Sandra, who reports she feels patient has improved since admission. She states she is okay with patient returning home tomorrow and does not have any concerns. Patient educated on: diagnosis and medication risk/benefits Reason for continued inpatient stay Substantial Risk for: stable for discharge Time Spent With Patient Time: Total time managing care of this patient today _20___ minutes.
[2024-10-06 14:50] VITALS: BP 131/80
[2024-10-06 19:33] VITALS: BP 139/80; PULSE 90; RESP 16; TEMP 36.9; O2SAT 100
[2024-10-06] MEDS: Melatonin 3 MG TABLET 6 MG PO (22:01)
[2024-10-06] MEDS: hydrOXYzine HCL 25 MG TABLET PO (22:02)
[2024-10-06] MEDS: traZODone HCL 50 MG TABLET PO (22:02)
[2024-10-06] MEDS: Cyclobenzaprine HCl 5 MG TABLET PO (22:03)
[2024-10-07] MEDS: Levothyroxine Sodium 25 MCG TABLET PO (06:34)
[2024-10-07 07:38] VITALS: BP 140/81; PULSE 100; RESP 14; TEMP 37.3; O2SAT 99
[2024-10-07 09:04] VITALS: BP 140/81
[2024-10-07] MEDS: Ziprasidone 40 MG CAPSULE PO (09:04)
[2024-10-07] MEDS: cloNIDine HCL 0.1 MG TABLET 0.05 MG PO ×2 (09:04→15:04)
[2024-10-07 09:06] VITALS: BP 140/81
[2024-10-07] MEDS: Losartan Potassium 50 MG TABLET 100 MG PO (09:06)
--- NOTE | 2024-10-07 09:32 | PM.PSYDC ---
DS: Providers Provider Date of Service: 10/07/24 Date of admission: 10/04/24 12:11 Date of discharge: 10/07/24 Primary care physician: Tarun Richard MD Admitting clinician: [place] Ham Attending physician on admission: Ignacio Gil Attending physician on discharge: Ignacio Gil Discharging clinician: [place] Ham DS: Diagnosis Discharge Diagnosis (1) MDD (major depressive disorder), recurrent episode: Status: Acute DS: Medications Discharge Medications Home Medications: Home Medications ?Medication ?Instructions ?Recorded ?Confirmed levothyroxine 25 mcg tablet 25 mcg PO DAILY 10/03/24 10/03/24 losartan 100 mg tablet 100 mg PO DAILY 10/03/24 10/03/24 ziprasidone HCl 40 mg capsule 40 mg PO DAILY 10/03/24 10/03/24 Mental Status Exam Mental Status Exam Narrative: Pt is alert and oriented; behavior is cooperative; dressed in casual attire; mood is described as good ; eye contact appropriate; Speech is normal rate, volume and not pressured; thought process is organized and goal directed; Thought content is on discharge; denies SI/HI/VH/AH. Data Data Completed and Pending Completed studies during hospitalization [Text1]: 10/03/24 10/03/24 10/03/24 12:18 14:30 14:52 WBC 8.8 RBC 5.07 Hgb 14.6 Hct 43.0 MCV 84.8 MCH 28.8 MCHC 34.0 RDW 13.2 Plt Count 280 MPV 10.8 Immature Gran % (Auto) 0.2 Neut % (Auto) 71.6 Lymph % (Auto) 19.5 L [place] % (Auto) 7.6 Eos % (Auto) 0.5 Baso % (Auto) 0.6 Lymph # (Auto) 1.7 [place] # (Auto) 0.7 Eos # (Auto) 0.0 Baso # (Auto) 0.1 Abs Immat Gran (auto) 0.02 Absolute Neuts (auto) 6.3 Absolute Nucleated RBC 0.000 Nucleated RBC % (auto) 0.0 Sodium 139 Potassium 3.6 Chloride 107 Carbon Dioxide 27 Anion Gap 9 L BUN 11 Creatinine 1.08 Estim Creat Clear Calc 100.4 Estimated GFR > 60 Random Glucose 140 H Fasting Glucose Calcium 9.5 Total Bilirubin 0.7 AST 26 ALT 30 Alkaline Phosphatase 78 Total Protein 7.6 Albumin 4.2 Triglycerides Cholesterol LDL Cholesterol, Calc HDL Cholesterol Urine Color Dark Yellow Urine Appearance Clear Urine pH 5.5 Ur Specific [place] 1.025 Urine Protein 30 (1+) H Urine Glucose (UA) Negative Urine Ketones Negative Urine Blood Negative Urine Nitrite Negative Ur Leukocyte Esterase Negative Urine RBC 0-2 Urine WBC 0-5 Ur Squamous Epith Cells 0-2 Urine Bacteria None Seen Hyaline Casts 3-5 Salicylates < 5.0 L Urine Opiates Screen Not Detected Ur Buprenorphine Scrn Not Detected Ur Oxycodone Screen Not Detected Urine Methadone Screen Not Detected Urine Fentanyl Screen Not Detected Acetaminophen < 3 Ur Barbiturates Screen Not Detected Ur Phencyclidine Scrn Not Detected Ur Amphetamines Screen Not Detected U Benzodiazepines Scrn Not Detected Urine Cocaine Screen Not Detected U Marijuana (THC) Screen POSITIVE H Ethyl Alcohol < 10 10/06/24 08:10 WBC RBC Hgb Hct MCV MCH MCHC RDW Plt Count MPV Immature Gran % (Auto) Neut % (Auto) Lymph % (Auto) [place] % (Auto) Eos % (Auto) Baso % (Auto) Lymph # (Auto) [place] # (Auto) Eos # (Auto) Baso # (Auto) Abs Immat Gran (auto) Absolute Neuts (auto) Absolute Nucleated RBC Nucleated RBC % (auto) Sodium 139 Potassium 4.2 Chloride 104 Carbon Dioxide 28 Anion Gap 11 L BUN 16 Creatinine 1.03 Estim Creat Clear Calc 104.8 Estimated GFR > 60 Random Glucose Fasting Glucose 106 H Calcium 10.1 D Total Bilirubin 0.4 AST 23 ALT 26 Alkaline Phosphatase 74 Total Protein 7.7 Albumin 4.3 Triglycerides 106 Cholesterol 163 LDL Cholesterol, Calc 109 H HDL Cholesterol 33 L Urine Color Urine Appearance Urine pH Ur Specific [place] Urine Protein Urine Glucose (UA) Urine Ketones Urine Blood Urine Nitrite Ur Leukocyte Esterase Urine RBC Urine WBC Ur Squamous Epith Cells Urine Bacteria Hyaline Casts Salicylates Urine Opiates Screen Ur Buprenorphine Scrn Ur Oxycodone Screen Urine Methadone Screen Urine Fentanyl Screen Acetaminophen Ur Barbiturates Screen Ur Phencyclidine Scrn Ur Amphetamines Screen U Benzodiazepines Scrn Urine Cocaine Screen U Marijuana (THC) Screen Ethyl Alcohol DS: Summary Hospital Course Hospital Course: Patient is a 49-year-old male with history of MDD who self presented to [facility] due to auditory and visual hallucinations secondary to medication noncompliance. Per crisis report, patient's family brought patient into ER 2 patient reporting command auditory hallucinations to get rid of himself and visual hallucinations of v-shaped signs. Patient reports he stopped taking his medications a couple of months and since then he has experienced increased depression, hallucinations, paranoia and poor sleep. Patient reports he is worried that someone is out to harm him. He reports he does not have any outpatient psychiatric providers. During admission assessment, patient presents alert and oriented x3. Calm and cooperative. Patient reports feeling anxious and depressed; patient stated, I felt like somebody was coming for me. I'm seeing lights moving and hearing alarm clocks. Six months ago I stopped taking my medications because I didn't think I needed them but obviously I do . Patient reports a similar occurrence 10 years ago. He reports he has not been eating or sleeping well. Patient reports he would like to be restarted on his medications and referred to outpatient psychiatric prescriber. denies SI/HI. Plan: CV 15 minute safety checks continue home medications Start: clonindine 0.05mg PO BID@0900,1500 melatonin 6mg PO bedtime encourage groups referral to outpatient psychiatric provider discharge planning 3 day notice up on 10/10/24. Active on unit, keeping to self. Patient reports feeling better since restarting his medications. Pt stated, I'm no longer feeling like someone is after me and the hallucinations stopped . He reports having a good visit with his and son yesterday. Showered. Pt reports sleeping well. denies SI/HI/VH/AH. Continue current tx plan. 3 day notice up on 10/10/24. Active on unit, social with peers. Patient reports feeling good ; pt stated, I'm a little sad because I found out my grandfather last night . Patient requesting to be discharged tomorrow; pt stated, I know that I have to keep taking my pills to feel better. All those negative feelings went away . denies SI/HI/VH/AH. Pt reports he does not want referrals to outpatient psychiatric providers and plans on obtaining his medications from his PCP; he reports if he changes his mind he will contact psychiatric providers. T/W spoke to patient's , Sandra, who reports she feels patient has improved since admission. She states she is okay with patient returning home tomorrow and does not have any concerns. Patient reports feeling good today; he plans on returning home and looking for a flight to [place] to be able to attend his grandfathers . Pt states he plans on following up with his outpatient providers and is considering obtaining a therapist when discharged. denies SI/HI/VH/AH. Time spent discussing smoking cessation with patient: 3 to 10 minutes Status at Discharge Cognitive/behavioral status at discharge: Patient was interviewed prior to discharge and found to be fully oriented and without SI or HI. Patient has insight and demonstrates good judgment in terms of wanting to pursue treatment. Patient has a safety plan that includes presenting to the closest ER or calling 911 if feeling unsafe. Functional status at discharge: independent ambulation Overall status at discharge: patient is back to baseline Time Spent with Patient Time attestation: Total time managing care of this patient today _20___ minutes. Time spent: Less than 30 minutes Discharge Plan Discharge Anticipated Discharge Date/Time: 10/07/24 17:00 Patient Disposition: Home, Self-Care Discharge Diagnosis: MDD with psychotic features Referrals: Therapy & Psychiatry [Other] - 1 Week (*If you change your mind and would like to work with outpatient mental health providers, you can present to the clinic above Thursday through Thursday during the hours of 8am and 8pm in order to obtain a therapist and a psychiatrist. *Please bring a photo ID and insurance card with you. ) Therapy & Psychiatry [Other] - 1 Week (*You can present to the clinic above, Thursday through Thursday between the hours of 10am and 12pm, in order to obtain outpatient mental health providers. *Please bring a photo ID and insurance card with you. ) Tarun Richard MD [Primary Care Provider] - 10/19/24 2:30 pm (Your follow up appt has been scheduled with Dr. Richard on 10-19-24 @ 2:30pm) Discharge Medications: New melatonin 5 mg tablet 5 mg PO BEDTIME 30 Days Qty: 30 0RF clonidine HCl 0.1 mg Tablet 0.05 mg PO BID@0900,1500 30 Days Qty: 30 0RF Protocol: Hold for SBP< HOLD for SBP < : 90 Continued levothyroxine 25 mcg tablet 25 mcg PO DAILY losartan 100 mg tablet 100 mg PO DAILY ziprasidone HCl 40 mg capsule 40 mg PO DAILY 30 Days Qty: 30 0RF Discharge Orders: Discharge Order (Routine); Ordered 10/07/24 Ordered By: [place] Ham Diet: Regular diet Activity on Discharge: As tolerated Stand Alone Forms: Patient Portal Discharge page, Community Support Print Language: Tamazight Care Plan Goals: Maintain mood and safe behaviors Take medications as prescribed Practice coping skills Continue with outpatient providers and reach out to them as needed Health Concerns: Mood stability and behavior Plan of Treatment: Follow up with your PCP, psychiatric provider and other outpatient providers regarding above concerns Take medications as prescribed Assessment: Patient was interviewed prior to discharge and found to be fully oriented and without SI or HI. Patient has insight and demonstrates good judgment in terms of wanting to pursue treatment. Patient has a safety plan that includes presenting to the closest ER or calling 911 if feeling unsafe.
[2024-10-07 10:31] LABS: Alanine Aminotransferase 26 U/L (0-40); Albumin Level 4.1 g/dL (3.5-5.0); Alkaline Phosphatase 68 U/L (39-117); Anion Gap 10 (12-20); Aspartate Amino Transferase 23 U/L (5-37); Bilirubin Total 0.3 mg/dL (0.0-1.0); Blood Urea Nitrogen 18 mg/dL (9-16); Calcium 9.2 mg/dL (8.4-10.2); Carbon Dioxide 31 mmol/L (22-29); Chloride 102 mmol/L (96-108); Creatinine Clr Calc Pharmacy 102.9; Estimated Glomerular Filt Rate > 60; Glucose Fasting 119 mg/dL (60-99); Sodium 139 mmol/L (135-145); Total Protein 7.2 g/dL (6.5-8.0)
[2024-10-07 15:04] VITALS: BP 119/79
== END 2024-10-07 16:45 | disposition home or self-care (01) | DRG 885 ==
LOC: HO.ED 19:48 → HO.PADLT16 10-04 13:00
PROVIDERS: Psychiatry & Neurology Psychiatry; Admitting Provider Registered Nurse; Emergency Provider Emergency Medicine; PCP Internal Medicine; Responsible Provider Registered Nurse; Visit Provider Psychiatry & Neurology Psychiatry
DX: F33.3 Major depressive disorder, recurrent, severe with psychotic symptoms (principal); F17.210 Nicotine dependence, cigarettes, uncomplicated; Z71.6 Tobacco abuse counseling; Z91.148 Patient's other noncompliance with medication regimen for other reason; E03.9 Hypothyroidism, unspecified; Z23 Encounter for immunization; Z79.890 Hormone replacement therapy; Z79.899 Other long term (current) drug therapy
CPT/HCPCS: 36415; 80053; 80061; 80143; 80179; 80307; 81001; 85025; 90656; 93005; 99285; S9485

== ENCOUNTER → 2024-10-03 12:05 | Outpatient (BNV) | payer OTHER, SELFPAY | PROVIDERS: Emergency Provider Emergency Medicine; PCP Internal Medicine; Visit Provider Internal Medicine Cardiovascular Disease | DX: R94.31 Abnormal electrocardiogram [ECG] [EKG] (principal) | CPT/HCPCS: 93010 ==

== ENCOUNTER → 2024-10-04 12:11 | Outpatient (BNV) | payer OTHER, SELFPAY | PROVIDERS: Admitting Provider Registered Nurse; Emergency Provider Emergency Medicine; PCP Internal Medicine; Responsible Provider Registered Nurse; Visit Provider Registered Nurse | DX: F33.9 Major depressive disorder, recurrent, unspecified (principal) | CPT/HCPCS: 90792; 99231; 99232; 99238 ==

== ENCOUNTER 2024-10-19 15:33 | Outpatient (REF) | payer MEDICARE, SELFPAY ==
[2024-10-19 16:29] LABS: Estimated Average Glucose 117 mg/dL; Hemoglobin A1C 137.4499 umol/L; Hemoglobin A1c % 5.7 % (<6.0); Total Hemoglobin (HGBA1C) 3558.8717 umol/L
[2024-10-19 17:25] LABS: Anion Gap 12 (12-20); Blood Urea Nitrogen 10 mg/dL (9-16); Calcium 9.4 mg/dL (8.4-10.2); Carbon Dioxide 29 mmol/L (22-29); Chloride 105 mmol/L (96-108); Estimated Glomerular Filt Rate > 60; Glucose Random 92 mg/dL (60-115); Potassium 3.9 mmol/L (3.3-5.1); Sodium 142 mmol/L (135-145)
[2024-10-19 17:42] LABS: Free T4 (Free Thyroxine) 0.94 ng/dL (0.71-1.85); Thyroid Stimulating Hormone 3.92 uIU/mL (0.32-4.0)
== END 2024-10-19 15:34 | disposition home or self-care (01) ==
LOC: HO.LAB 15:33
PROVIDERS: PCP Internal Medicine; Visit Provider Internal Medicine
DX: I10 Essential (primary) hypertension (principal); E03.9 Hypothyroidism, unspecified; R73.03 Prediabetes
CPT/HCPCS: 36415; 80048; 83036; 84439; 84443

== ENCOUNTER 2025-03-15 10:49 | Outpatient (AMB) | payer MEDICARE, SELFPAY ==
--- NOTE | 2025-03-15 10:54 | A.OFFPC_ITS ---
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 His is present Seven months ago, he was hospitalized due to a manic episode associated with his Bipolar Disorder, during which he experienced symptoms such as insomnia and auditory hallucinations; however, he has maintained stability since discharge. He continues management with psychiatrist Catarino Us. In parallel, the patient's longstanding knee issues necessitate a knee replacement, delayed due to age-related considerations, and have shown increased pain correlated with recent weight gain. Various efforts at weight management are noted, including dietary changes and exercise, however, physical activity is limited by knee pain. The ongoing management of his condition included discussions about adjunct therapies for weight loss, with possibilities for pharmacologic interventions faced with insurance challenges. The patient is also being monitored for endocrine function due to a history of hypothyroidism. Medications for cardiac and thyroid functions include losartan, atenolol, and levothyroxine, with hypertension noted under consistent management, evidenced by prescriptions such as clonidine. Review of Systems - Psychiatric: Reports stable mood; note s previous auditory hallucinations during past manic episode. - Musculoskeletal: Reports knee pain; no bryce increased weight gain affecting knee function. No swelling - Cardiovascular: Denies chest pain, sharonda rtness of breath. - Gastrointestinal: Denies nausea, vomit ing, diarrhea. - General: Reports weight gain. Vital Signs Health Maintenance - Discussions of weight management throu gh diet and exercise, referral to weight management, and exploration of pharmacological options. - Plan for ongoing management of thyroid function. - Regular psychiatric follow-up and medi cation management with psychiatrist involvement. Physical Exam Constitutional: Awake and alert, no apparent distress Heart: RRR, S1S2, no murmurs, no edema Lungs: CTA bilaterally, no wheezing Extremities: No calf tenderness MSK: R Knee, no swelling, effusion. Ambulatory Skin: Warm and dry Neuro: Alert and oriented x 3 Assessment and Plan 1. Bipolar Disorder Continue psychiatric management under Dr. Catarino Us with current pharmacotherapy, given stability. No evidence of EPS/TD 2. Knee Pain Monitor knee status, pursue tailored exercise and weight management, track adequacy of current pain relief. Continue ibuprofen as needed. Follow up with [facility] for further recommendations on PT vs TKA 3. Weight Gain Engage with weight management services to assess comprehensive strategies as well as medication options for weight loss. Referral placed. Ozempic ordered pending insurance authorization. Counseled on use and side effects 4. Hypertension Continue atenolol 25 mg daily, losartan 100 mg daily. Low-sodium diet. Continue weight loss efforts. BNP ordered to evaluate renal function electrolyte levels 5. Hypothyroidism Continue levothyroxine 25 mcg daily, dose to be adjusted pending TSH results white disordered Patient was informed and verbally consented to the use of an ambient scribe for clinic note documentation during this visit. [facility] Medical History Hypothyroidism Hypertension Family History Mother No problems noted. Father No problems noted. Social History Household Members: None Housing: House Patient Tobacco Use Status: Current everyday Tobacco user Tobacco use type: Cigarette Cigarette Packs Per Day: 0.25 Cigarettes Per Day: 5.0 e-Cigarette/Vaping Use: Currently Using Second Hand Smoke Exposure: No Substance Use Type: Marijuana service: No Current occupational status: retired Sexual orientation: Straight/Heterosexual Cognitive needs: No Hearing needs: No Vision needs: Yes (reading glasses) Questionnaire PHQ-9 Over the last 2 weeks, how often have you been bothered by any of the following problems? 1. Little interest or pleasure in doing things: not at all 2. Feeling down, depressed, or hopeless: not at all 3. Trouble falling or staying asleep, or sleeping too much: not at all 4. Feeling tired or having little energy: not at all 5. Poor appetite or overeating: not at all 6. Feeling bad about yourself - or that you are a failure or have let yourself or your family down: not at all 7. Trouble concentrating on things, such as reading the newspaper or watching television: not at all 8. Moving or speaking so slowly that other people could have noticed. Or the opposite - being so fidgety or restless that you have been moving around a lot more than usual: not at all 9. Thoughts that you would be better off or of hurting yourself in some way: not at all Total score: 0 Source: Developed by Drs. Shay Groves, Carrie Montez, Jeff Leung and colleagues, with an educational kenrick from [employer]. Thrive Questionnaire Date Thrive assessed: 03/15/25 I am a: Patient Within the past 12 months, did the food you bought not last and you didn't have the money to get more?: Never true Within the past 12 months, did you worry whether your food would run out before you got money to buy more?: Never true Do you have trouble paying for medicines?: No Do you have trouble getting transportation to medical appointments?: No Do you have trouble paying your heating and electricity bill?: No Do you have trouble taking care of your child, family member or friend?: No Do you have trouble with day-to-day activities such as bathing, preparing meals, shopping, managing finances, etc.?: No Are you currently unemployed and looking for a job?: No Are you interested in more education?: No THRIVE Score: 0 AUDIT C Alcohol Use Questionnaire (AUDIT-C) 1. How often do you have a drink containing alcohol?: Monthly or less 2. How many drinks containing alcohol do you have on a typical day when you are drinking?: 1 or 2 3. How often do you have six or more drinks on one occasion?: Less than monthly Total Score: 2 SAMIRA-7 AMB Questionnaire SAMIRA-7 Date SAMIRA - 7 assessed: 03/15/25 Feeling nervous, anxious, or on edge: 0 = Not at all Not being able to stop or control worryin = Not at all Worrying too much about different things: 0 = Not at all Trouble relaxin = Not at all Being so restless that it is hard to sit still: 0 = Not at all Becoming easily annoyed or irritable: 0 = Not at all Feeling afraid as if something awful might happen: 0 = Not at all Total SAMIRA-7 score (0-4 normal; 5-9 mild; 10-14 moderate; 15-21 severe): 0 Source: Developed by Drs. Shay Groves, Carrie Montez, Jeff Leung and colleagues, with an educational kenrick from [employer]. Physical exam (Primary Care) Vital Signs: Last Vital Signs Temp 97.8 F 03/15/25 11:05 Pulse 61 03/15/25 11:05 BP 118/70 03/15/25 11:05 Pulse Ox 98 03/15/25 11:05 Oxygen Delivery Method Room Air 03/15/25 11:05 BMI result Body Mass Index 37.9 Tobacco/Smoking Status: Tobacco use Status Tobacco use date assessed 03/15/25 03/15/25 10:55 Patient Tobacco Use Status Current everyday Tobacco 03/15/25 11:16 Tobacco use type Cigarette 03/15/25 10:55 e-Cigarette/Vaping Use Currently Using 03/15/25 10:55 PHQ-9: PHQ-9 Score PHQ-9: Total score 0 03/15/25 11:26 Thrive Assessment: Date of Thrive Assessment Date Thrive assessed 03/15/25 03/15/25 10:55 Coding Level of Care Code New Pt Level 4 (01197) Complex EM visit Add On G2211 Diagnoses Hypertension I10 Hypothyroidism E03.9 MDD (major depressive disorder), recurrent episode F33.9 Obesity, Class II, BMI 35-39.9 E66.812 Assessment & Plan Assessment & Plan (1) Hypertension: Code(s): I10 - Essential (primary) hypertension Category: Medical Plan: Reasonably controlled. Continue current therapies. BNP ordered (2) Hypothyroidism: Code(s): E03.9 - Hypothyroidism, unspecified Category: Medical Plan: Continue levothyroxine, dose to be adjusted as needed pending TSH results (3) MDD (major depressive disorder), recurrent episode: Code(s): F33.9 - Major depressive disorder, recurrent, unspecified Category: Medical Plan: Stable. Continue following with Psychiatry. Continue Geodon, hydroxyzine, clonidine (4) Obesity, Class II, BMI 35-39.9: Code(s): E66.812 - Obesity, class 2 Category: Medical Plan: Continue weight loss efforts. Ozempic ordered pending insurance auth. Declines referral to collections attorney. Referral placed to weight management at the request of patient and his . Plan Follow-up in 6 months with labs completed prior to visit Orders: Orders Liver Panel Today F33.9 - Major depressive disorder, recurrent, unspecified, I10 - Essential (primary) hypertension TSH reflex Free T4 Today E03.9 - Hypothyroidism, unspecified Basic Metabolic Panel 5 Months I10 - Essential (primary) hypertension Basic Metabolic Panel Today F33.9 - Major depressive disorder, recurrent, unspecified, I10 - Essential (primary) hypertension Hemoglobin A1c Today E66.812 - Obesity, class 2 Referrals Medical Weight Management Referral E66.812 - Obesity, class 2 Medications: New atenolol 25 mg PO DAILY 90 tabs 1RF semaglutide (Ozempic) for 4 weeks 0.25 mg (0.368 mL) subcut QWEEK 3 mL 0RF losartan 100 mg PO DAILY 90 tabs 1RF
[2025-03-15 11:05] VITALS: BP 118/70; PULSE 61; TEMP 36.6; O2SAT 98; BMI 37.9
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
== END 2025-03-15 11:37 | disposition home or self-care (01) ==
LOC: HO.HMCHD 10:49
PROVIDERS: PCP Internal Medicine; Visit Provider Physician Assistant
DX: I10 Essential (primary) hypertension (principal); E03.9 Hypothyroidism, unspecified; F33.9 Major depressive disorder, recurrent, unspecified; E66.812 Obesity, class 2

== ENCOUNTER → 2025-03-15 10:49 | Outpatient (BNVA) | payer MEDICARE, SELFPAY | PROVIDERS: PCP Internal Medicine; Visit Provider Physician Assistant | DX: F31.9 Bipolar disorder, unspecified (principal); I10 Essential (primary) hypertension; E03.9 Hypothyroidism, unspecified; E66.812 Obesity, class 2; Z68.37 Body mass index [BMI] 37.0-37.9, adult | CPT/HCPCS: 96127; 99202 ==

== ENCOUNTER 2025-08-23 09:22 | Outpatient (AMB) | payer MEDICARE, SELFPAY ==
--- NOTE | 2025-08-23 09:24 | A.OFFPC_ITS ---
Vital Signs 08/23/25 09:35 Height 5 ft 9 in Weight 108.409 kg BMI 35.3 BP 140/94 H Blood Pressure Location Rt brachial Position Sitting Respiration 16 Pulse 76 Pulse Source Pulse Oximeter Temp 97.5 F Temp Source Temporal Artery Scan Pulse Oximetry (%) 96 Oxygen Delivery Method Room Air Intake Visit Reasons: [facility] Resident Care Assistant Required: No Accompanied by: Spouse Allergies No Known Allergies Allergy (Unknown, Verified 08/23/25 09:24) Medication List - Last Reconciled 08/23/25 by MARIA INES Muhammad aspirin 1 tab PO DAILY atenolol 25 mg PO DAILY clonidine HCl 0.05 mg See Protocol PO BID@0900,1500 30 days levothyroxine 25 mcg PO DAILY losartan 100 mg PO DAILY paliperidone palmitate (Invega Sustenna) mg IM semaglutide (Ozempic) 0.25 mg (0.368 mL) subcut QWEEK trazodone 50 mg PO BEDTIME Tobacco use date assessed: 03/15/25 Dental Screening Dental Screen Date: 03/15/25 HPI HPI Comments History of Present Illness Details 49-year-old male with history of schizoa ffective disorder, hypertension, hypothyroidism, obesity presenting to the office today accompanied by his , Sandra who assists with history, for hospital discharge follow-up and management of chronic conditions. Schizoaffective disorder-presented to [facility] with psychiatric decompensation in the context of significant psychosocial stressors, most notably issues with divorce per behavioral health records, however his states that it is related to ongoing stressors including the of his son, the of his father, in the incarceration of his other son with ongoing issues related to his daughter all within the last 3 years. He does tell me that he stopped taking his medications which also likely led to his decompensation. Per the written report, the patient has been exhibiting significant paranoia and disorganized behaviors and had been barricading windows in his apartment, destroying security can res and endorsing fixed delusional beliefs that is brief was practicing [place] against him. Prior to that his symptoms had been well managed with remote history of hallucinations related to cocaine abuse 7 months ago. Reportedly during the hospitalization he was continued on his home medication of lorazepam stone which was then tapered and discontinued. He was started on oral Invega at 6 mg and then was transitioned to long-acting injectable IBRAHIM therapy with Invega Sustenna, 1st dose 234 mg on 07/31 and 2nd loading dose administered= on 08/04. Next dose due 09/01 to be completed by psychiatric staff outpatient. Reportedly he also remained on Abilify which was titrated to 10 mg daily but both the patient and his deny this and there was no prescription for this at the pharmacy. He was continued on trazodone and clonidine. He does have outpatient providers at [facility] in both therapy as well as Psychiatry. The patient reports that he is feeling much better though is noted to be very flat during the exam. He states that he is able to feel happy and feels stable. He has taken medications as prescribed. He denies any ongoing depression or alyse and his corroborates with this. He states overall he is feeling much better. HTN- Reportedly, his losartan was decreased to 50 mg daily , unclear reason as I do not see documentation of this. His blood pressure is elevated both initially and on recheck at 148/92. He is compliant with the now decrease dose of losartan and atenolol. Hypothyroidism-reportedly levothyroxine 25 mcg daily was discontinued during hospitalization, again I do not see documentation of this nor reason for this. Severe obesity-BMI 35.3. Has been on Ozempic 0.25 mg weekly for the last 6 months with good effect. He has lost nearly 20 lb. He feels like his weight loss has plateaued however and is requesting an increase in his dosage. Concerns: Has been following with any OS for osteoarthritis of the knees. His previous provider has left the practice and does have upcoming appointment with a new provider on September 13. However, they refused to refill any medications or perform injections prior to visit. Requesting short course of tramadol to hold him over until evaluated ROS: see hpi EXAM: Constitutional - Awake and Alert, No apparent distress Eyes - PERRL Cardiovascular - S1S2, RRR, No edema Respiratory - Normal lung expansion, Normal respiratory effort, No respiratory distress, CTA bilaterally Extremities - no calf tenderness bilaterally, no swelling Skin - Warm/Dry Neurological - Alert & oriented x3 Psychological - flat affect [facility] Medical History (Updated 08/23/25 @ 10:10 by MARIA INES Muhammad) Schizoaffective disorder Hypothyroidism Hypertension Family History Mother No problems noted. Father No problems noted. Social History Household Members: None Housing: House Patient Tobacco Use Status: Current everyday Tobacco user Tobacco use type: Cigarette Cigarette Packs Per Day: 0.25 Cigarettes Per Day: 5.0 e-Cigarette/Vaping Use: Currently Using Second Hand Smoke Exposure: No Substance Use Type: Marijuana service: No Current occupational status: retired Sexual orientation: Straight/Heterosexual Cognitive needs: No Hearing needs: No Vision needs: Yes (reading glasses) Questionnaire Thrive Questionnaire Date Thrive assessed: 03/15/25 SAMIRA-7 AMB Questionnaire SAMIRA-7 Date SAMIRA - 7 assessed: 03/15/25 Source: Developed by Drs. Shay Groves, Carrie Montez, Jeff Leung and colleagues, with an educational kenrick from [employer]. Physical exam (Primary Care) Vital Signs: Last Vital Signs Temp 97.5 F 08/23/25 09:35 Pulse 76 08/23/25 09:35 Resp 16 08/23/25 09:35 BP 140/94 H 08/23/25 09:35 Pulse Ox 96 08/23/25 09:35 Oxygen Delivery Method Room Air 08/23/25 09:35 BMI result Body Mass Index 35.3 Tobacco/Smoking Status: Tobacco use Status Tobacco use date assessed 03/15/25 08/23/25 09:25 Patient Tobacco Use Status Current everyday Tobacco 08/23/25 09:25 Tobacco use type Cigarette 08/23/25 09:25 e-Cigarette/Vaping Use Currently Using 08/23/25 09:25 Thrive Assessment: Date of Thrive Assessment Date Thrive assessed 03/15/25 08/23/25 09:25 Coding Level of Care Code Est Pt Level 5 (63104) Diagnoses Schizoaffective disorder F25.9 Hypertension I10 Hypothyroidism E03.9 Obesity, Class II, BMI 35-39.9 E66.812 Time Spent (min) 45 Assessment & Plan Assessment & Plan (1) Schizoaffective disorder: Code(s): F25.9 - Schizoaffective disorder, unspecified Category: Medical Plan: Stable. Reviewed admission and discharge notes from [facility]. Symptoms compensated at this time though affect remains flat. Continue with Invega injections monthly through psychiatry. Discharge medications reviewed from [facility] though do not match what was sent to the pharmacy and that which patient is currently taking. Will continue current therapies and he will follow up with psychiatry. Continue invega, clonidine, and trazodone. Will closely mon itor cbc, cmp, tsh, a1c q3m (2) Hypertension: Code(s): I10 - Essential (primary) hypertension Category: Medical Plan: Uncontrolled. Increase losartan back to 100 mg daily which he was previously taking as well as atenolol 25 mg daily (3) Hypothyroidism: Code(s): E03.9 - Hypothyroidism, unspecified Category: Medical Plan: TSH and free T4 ordered. Will continue patient on levothyroxine 25 mcg daily. Continue with labs for medication monitoring every 3 months. (4) Obesity, Class II, BMI 35-39.9: Code(s): E66.812 - Obesity, class 2 Category: Medical Plan: Commended on weight loss thus far. He will continue with healthy diet and improve exercise routine. Discussed that some of his medications can intrinsically cause weight gain. We will continue monitoring weight and he can continue on Ozempic as this will benefit his weight as well as help manage estrogenic metabolic syndrome. Plan Follow-up in the office in 2-3 weeks for blood pressure recheck. 45 minutes spent reviewing documentation from psychiatric facility and in exam/interview with patient and his Orders: Orders Microalbumin, Random (w Creat) Today E03.9 - Hypothyroidism, unspecified, I10 - Essential (primary) hypertension Lipid Panel Today E03.9 - Hypothyroidism, unspecified, I10 - Essential (primary) hypertension Free T4 (Free Thyroxine) Today E03.9 - Hypothyroidism, unspecified Medications: New semaglutide (Ozempic) 0.5 mg (0.736 mL) subcut QWEEK 3 mL 3RF E03.9 - Hypothyroidism, unspecified, E66.812 - Obesity, class 2, F25.9 - Schizoaffective disorder, unspecified, I10 - Essential (primary) hypertension losartan 100 mg PO DAILY 90 tabs 1RF levothyroxine 25 mcg PO DAILY 90 tabs 1RF Discontinued semaglutide (Ozempic) for 4 weeks. Prior auth #[id number] Discontinued Reason: Doctor's Order 0.25 mg (0.368 mL) subcut QWEEK 3 mL 2RF Patient Instructions: Lower leg edema likely medication related- try compression stockings around 30mmHg during daym elevate at night. If very bothersome reach out to pyschiatry about medication changes possibly
[2025-08-23 09:35] VITALS: BP 140/94; PULSE 76; RESP 16; TEMP 36.4; O2SAT 96; BMI 35.3
== END 2025-08-23 10:17 | disposition home or self-care (01) ==
LOC: HO.HMCHD 09:22
PROVIDERS: PCP Internal Medicine; Visit Provider Physician Assistant
DX: I10 Essential (primary) hypertension (principal); F25.9 Schizoaffective disorder, unspecified; E66.812 Obesity, class 2; Z68.35 Body mass index [BMI] 35.0-35.9, adult; E03.9 Hypothyroidism, unspecified

== ENCOUNTER → 2025-08-23 09:22 | Outpatient (BNVA) | payer MEDICARE, SELFPAY | PROVIDERS: PCP Internal Medicine; Visit Provider Physician Assistant | DX: F25.9 Schizoaffective disorder, unspecified (principal); I10 Essential (primary) hypertension; E03.9 Hypothyroidism, unspecified; E66.812 Obesity, class 2; Z68.35 Body mass index [BMI] 35.0-35.9, adult; Z79.899 Other long term (current) drug therapy | CPT/HCPCS: 99212 ==

== ENCOUNTER 2025-08-24 09:06 | Outpatient (REF) | payer MEDICARE, SELFPAY ==
[2025-08-24 10:22] LABS: Alanine Aminotransferase 14 U/L (0-40); Albumin Level 4.2 g/dL (3.5-5.0); Alkaline Phosphatase 73 U/L (39-117); Anion Gap 10 (12-20); Aspartate Amino Transferase 16 U/L (5-37); Blood Urea Nitrogen 14 mg/dL (9-16); Calcium 8.9 mg/dL (8.4-10.2); Carbon Dioxide 29 mmol/L (22-29); Chloride 104 mmol/L (96-108); Cholesterol 200 mg/dL (<200); Estimated Glomerular Filt Rate > 60; HDL Cholesterol 37 mg/dL (>40); Potassium 3.7 mmol/L (3.3-5.1); Sodium 139 mmol/L (135-145); Total Protein 7.4 g/dL (6.5-8.0); Triglycerides 98 mg/dL (<150)
[2025-08-24 10:43] LABS: Microalbum/Creatinine Ratio Ur 3.8 ug/mg cr (<30)
[2025-08-24 10:43] LABS: Free T4 (Free Thyroxine) 0.97 ng/dL (0.71-1.85)
== END 2025-08-24 09:07 | disposition home or self-care (01) ==
LOC: HO.LAB 09:06
PROVIDERS: PCP Physician Assistant; Visit Provider Physician Assistant
DX: Z13.1 Encounter for screening for diabetes mellitus (principal); E03.9 Hypothyroidism, unspecified; I10 Essential (primary) hypertension; F33.9 Major depressive disorder, recurrent, unspecified; E66.812 Obesity, class 2
CPT/HCPCS: 36415; 80048; 80061; 80076; 82043; 82570; 83036; 84439; 84443

== ENCOUNTER → 2025-09-20 16:13 | Outpatient (BNVA) | payer MEDICARE, SELFPAY | PROVIDERS: PCP Physician Assistant; Visit Provider Physician Assistant | DX: F25.9 Schizoaffective disorder, unspecified (principal); I10 Essential (primary) hypertension; E03.9 Hypothyroidism, unspecified; E66.812 Obesity, class 2; Z68.35 Body mass index [BMI] 35.0-35.9, adult; E78.5 Hyperlipidemia, unspecified; M25.511 Pain in right shoulder; Z79.899 Other long term (current) drug therapy; Z13.30 Encounter for screening examination for mental health and behavioral disorders, unspecified; Z13.39 Encounter for screening examination for other mental health and behavioral disorders | CPT/HCPCS: 96127; 99212 ==

== ENCOUNTER → 2025-09-20 16:13 | Outpatient (AMB) | payer MEDICARE, SELFPAY ==
[2025-09-20 15:55] VITALS: BP 140/76; PULSE 77; TEMP 36.8; O2SAT 98; BMI 35.3
--- NOTE | 2025-09-20 15:55 | A.OFFPC_ITS ---
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 Accompanied by: Self / Same As Patient Allergies No Known Allergies Allergy (Unknown, Verified 09/20/25 15:55) Medication List - Last Reconciled 09/20/25 by MARIA INES Muhammad aspirin 1 tab PO DAILY atenolol 25 mg PO DAILY clonidine HCl 0.05 mg See Protocol PO BID@0900,1500 30 days levothyroxine 25 mcg PO DAILY losartan 100 mg PO DAILY paliperidone palmitate (Invega Sustenna) mg IM semaglutide (Ozempic) 0.5 mg (0.736 mL) subcut QWEEK tizanidine 4 mg PO Q8H PRN trazodone 50 mg PO BEDTIME Tobacco use date assessed: 09/20/25 Dental Screening Dental Screen Date: 09/20/25 Did you have a dental visit in the last 12 months?: No Did you have a dental problem in the last 6 months where you did not have access to dental care?: No HPI HPI Comments History of Present Illness Details 49-year-old male with history of schizoa ffective disorder, hypertension, hypothyroidism, obesity presenting to the office today accompanied by his , Sandra who assists with history, for hospital discharge follow-up and management of chronic conditions. Schizoaffective disorder-has been doing well since discharge from your [place]. Has been following closely with [facility] in both therapy and psychiatry. He has been managed on Invega as well as clonidine and trazodone. Reports he is feeling much better. No SI/HI. No psychosis HTN- seen about 1 month ago with uncontrolled blood pressures. Losartan was increased to 100 mg daily and he he was continued on atenolol 25 mg daily. Initial blood pressure in the office 140/76, recheck 136/86 Hypothyroidism-reportedly levothyroxine 25 mcg. Last TSH 1.47, free T4 0.97 Hyperlipidemia-total cholesterol 200, LDL 144, HDL 37, triglycerides 98. Suspect this is multifactorial related to lifestyle but complicated by antip sychotic medications. Severe obesity-BMI 35.3. Has been on Ozempic 0.25 mg weekly for the last 6 months with good effect. He has lost nearly 20 lb. Bilateral osteoarthritis of the knees-following with [facility]. He is receiving cortisone injections with good effect. He is also being prescribed tramadol PRN by orthopedic surgeon. Right shoulder pain-ongoing since last night. Denies any known injury however has recently started going back to the gym and has been doing overhead weight exercises which is primarily when his symptoms exacerbate. Has been using a 10s machine as well as taking the tramadol. Reports muscle ache into the forearm but no weakness or paresthesias ROS: see hpi EXAM: Constitutional - Awake and Alert, No apparent distress Eyes - PERRL Cardiovascular - S1S2, RRR, No edema Respiratory - Normal lung expansion, Normal respiratory effort, No respiratory distress, CTA bilaterally Extremities - no calf tenderness bilaterally, no swelling Skin - Warm/Dry Neurological - Alert & oriented x3 Psychological - flat affect [facility] Medical History (Updated 09/20/25 @ 16:56 by MARIA INES Muhammad) Hyperlipidemia Schizoaffective disorder Hypothyroidism Hypertension Family History (Updated 09/20/25 @ 16:30 by Candelaria Mccoy MA) Mother No problems noted. Father No problems noted. Social History Household Members: None Housing: House Patient Tobacco Use Status: Current everyday Tobacco user Tobacco use type: Cigarette Cigarette Packs Per Day: 0.25 Cigarettes Per Day: 5.0 e-Cigarette/Vaping Use: Currently Using Second Hand Smoke Exposure: No Substance Use Type: Marijuana service: No Current occupational status: retired Sexual orientation: Straight/Heterosexual Cognitive needs: No Hearing needs: No Vision needs: Yes (reading glasses) Questionnaire PHQ-9 Over the last 2 weeks, how often have you been bothered by any of the following problems? 1. Little interest or pleasure in doing things: not at all 2. Feeling down, depressed, or hopeless: not at all 3. Trouble falling or staying asleep, or sleeping too much: not at all 4. Feeling tired or having little energy: not at all 5. Poor appetite or overeating: not at all 6. Feeling bad about yourself - or that you are a failure or have let yourself or your family down: not at all 7. Trouble concentrating on things, such as reading the newspaper or watching television: not at all 8. Moving or speaking so slowly that other people could have noticed. Or the opposite - being so fidgety or restless that you have been moving around a lot more than usual: not at all 9. Thoughts that you would be better off or of hurting yourself in some way: not at all Total score: 0 Source: Developed by Drs. Shay Groves, Carrie Montez, Jeff Leung and colleagues, with an educational kenrick from [employer]. Thrive Questionnaire Date Thrive assessed: 09/20/25 I am a: Patient Within the past 12 months, did the food you bought not last and you didn't have the money to get more?: Never true Within the past 12 months, did you worry whether your food would run out before you got money to buy more?: Never true Do you have trouble paying for medicines?: No Do you have trouble getting transportation to medical appointments?: No Do you have trouble paying your heating and electricity bill?: No Do you have trouble taking care of your child, family member or friend?: No Do you have trouble with day-to-day activities such as bathing, preparing meals, shopping, managing finances, etc.?: No Are you currently unemployed and looking for a job?: No Are you interested in more education?: No THRIVE Score: 0 AUDIT C Alcohol Use Questionnaire (AUDIT-C) 1. How often do you have a drink containing alcohol?: Monthly or less 2. How many drinks containing alcohol do you have on a typical day when you are drinking?: 1 or 2 3. How often do you have six or more drinks on one occasion?: Less than monthly Total Score: 2 SAMIRA-7 AMB Questionnaire SAMIRA-7 Date SAMIRA - 7 assessed: 09/20/25 Feeling nervous, anxious, or on edge: 0 = Not at all Not being able to stop or control worryin = Not at all Worrying too much about different things: 0 = Not at all Trouble relaxin = Not at all Being so restless that it is hard to sit still: 0 = Not at all Becoming easily annoyed or irritable: 0 = Not at all Feeling afraid as if something awful might happen: 0 = Not at all Total SAMIRA-7 score (0-4 normal; 5-9 mild; 10-14 moderate; 15-21 severe): 0 Source: Developed by Drs. Shay Groves, Carrie Montez, Jeff Leung and colleagues, with an educational kenrick from [employer]. Physical exam (Primary Care) Vital Signs: Last Vital Signs Temp 98.3 F 09/20/25 15:55 Pulse 77 09/20/25 15:55 BP 136/86 09/20/25 16:46 Pulse Ox 98 09/20/25 15:55 Oxygen Delivery Method Room Air 09/20/25 15:55 BMI result Body Mass Index 35.3 Tobacco/Smoking Status: Tobacco use Status Tobacco use date assessed 09/20/25 09/20/25 15:56 Patient Tobacco Use Status Current everyday Tobacco 09/20/25 15:56 Tobacco use type Cigarette 09/20/25 15:56 e-Cigarette/Vaping Use Currently Using 09/20/25 15:56 PHQ-9: PHQ-9 Score PHQ-9: Total score 0 09/20/25 16:36 Thrive Assessment: Date of Thrive Assessment Date Thrive assessed 09/20/25 09/20/25 15:56 Coding Level of Care Code Est Pt Level 4 (11733) Complex EM visit Add On G2211 Diagnoses Schizoaffective disorder F25.9 Hypertension I10 Hypothyroidism E03.9 Obesity, Class II, BMI 35-39.9 E66.812 Hyperlipidemia E78.5 Right shoulder pain M25.511 Assessment & Plan Assessment & Plan (1) Schizoaffective disorder: Code(s): F25.9 - Schizoaffective disorder, unspecified Category: Medical Plan: Stable. Continue on current therapies. Continue following with [facility] for both therapy and psychiatry. We will continue monitoring CMP, TSH, lipid panel (2) Hypertension: Code(s): I10 - Essential (primary) hypertension Category: Medical Plan: Controlled on recheck. Continue losartan 100 mg daily and atenolol 25 mg daily. Continue with weight loss efforts as above (3) Hypothyroidism: Code(s): E03.9 - Hypothyroidism, unspecified Category: Medical Plan: Euthyroid. Continue levothyroxine 25 mcg daily. (4) Obesity, Class II, BMI 35-39.9: Code(s): E66.812 - Obesity, class 2 Category: Medical Plan: Commended on weight loss thus far. He will continue with healthy diet and improve exercise routine. Discussed that some of his medications can intrinsically cause weight gain. We will continue monitoring weight and he can continue on Ozempic as this will benefit his weight as well as help manage estrogenic metabolic syndrome. (5) Hyperlipidemia: Code(s): E78.5 - Hyperlipidemia, unspecified Category: Medical Plan: LDL 144. Likely multifactorial as noted above. At this time, we will recommend lifestyle modification as discussed in the office. He is also given written information on this. (6) Right shoulder pain: Code(s): M25.511 - Pain in right shoulder Category: Medical Plan: XR of the right shoulder ordered. Follow up with surgeon. Ibhuprofen, tizanidine prn. Can use tramodol prn. Ice, rest. Avoid aggravating activities Plan Follow-up in the office in 6 months. Orders: Orders XR shoulder RT min 2V Today M25.511 - Pain in right shoulder, M25.619 - Stiffness of unspecified shoulder, not elsewhere classified Medications: New tizanidine 4 mg PO Q8H PRN 30 tabs 0RF muscle spasticity
[2025-09-20 16:46] VITALS: BP 136/86
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
--- OUTSIDE RECORDS SUMMARY | 2025-09-20 18:55 | XMS_ITS | Clinical Summary ---
Author Organization [facility] Address [address] [place] [address] Phone Care Team Providers Care Broach Operator Name Role Phone Unknown, Unknown Primary Care Provider Harper stack Allergies No known active allergies Social History Tobacco Use Types Packs/Day Years Used Date Smoking Tobacco: Smoker, Current Status Unknown Education Answer Date Recorded Are you interested in more education? Not on phuc e 03/22/2023 Are you concerned about learning? Not on file 03/22/2023 No 03/22/2023 No 03/22/2023 Digital Access Answer Date Recorded No 04/12/2023 No 04/12/2023 No 04/12/2023 Reliable internet access at home? Not on file 04/12/2023 Device with a working camera? Not on file Sex and Gender Information Value Date Recorded Sex Assigned at Not on file Legal Sex Male 6:47 PM EST Gender Identity Not on file Sexual Orientation Not on file Plan of Treatment Health Maintenance Due Date Last Done Comments Adult Td,Tdap Booster 1977 LIPID PANEL 1977 DEPRESSION SCREENING 1989 SMOKING Hx and SMOKELESS TOB ACCO SCREENING 1990 HEPATITIS C SCREENING 1995 HIV ONE-TIME SCREENING (18-6 5 YEARS) 1995 PNEUMOCOCCAL VACCINES (0-49 years) (1 of 2 - PCV) 1996 COLOGUARD 2022 COLONOSCOPY 2022 COLORECTAL CANCER SCREENING 2022 FIT TEST 2022 FOBT 2022 SIGMOIDOSCOPY 2022 VIRTUAL COLONOSCOPY 2022 INFLUENZA VACCINE (#1) 2025 07/20/2012 COVID-19 VACCINE (2024-12 6 season) 2025 02/20/2021 HEPATITIS A VACCINES Aged Out No long er eligible based on patient's age to complete this topic HIB VACCINES Aged Out No longer eligi ble based on patient's age to complete this topic MENINGOCOCCAL VACCINES (ACWY) Aged Out No longer eligible based on patient's age to complete this topic MENINGOCOCCAL VACCINES (B) Aged Out N o longer eligible based on patient's age to complete this topic Medical Devices Not on file Insurance MEDICARE PART A & B [facility] MEDICARE PART A & [place] & B HEALTH MEDICARE PART A & B HEALTH MEDICARE PART A & B HEALTH MEDICARE PART A & B [facility] Advance Directives For more information, please contact: [phone] (9AM - 5PM [facility], Thursday-Thursday) Documents on File Type Date Recorded Patient Sr Solutions Consultant Expl anation Advance Directive - Non Epic LMR 08/18/2008 12:00 AM Care Teams Broach Operator Relationship Specialty Start Date End Date Unknown, Unknown, PCP - General 08/22/16 Additional Source Comments The information contained in this document represents components of the legal health record. It is not the complete legal health record.[facility]
== END ==
LOC: HO.HMCHD 16:14
PROVIDERS: PCP Physician Assistant; Visit Provider Physician Assistant
DX: F25.9 Schizoaffective disorder, unspecified (principal); I10 Essential (primary) hypertension; E03.9 Hypothyroidism, unspecified; E66.812 Obesity, class 2; E78.5 Hyperlipidemia, unspecified; M25.511 Pain in right shoulder